=== PATIENT | female | born 1960 | race Caucasian/White ===

== ENCOUNTER → 2019-02-26 09:51 | Outpatient (CLI) | payer MEDICARE, SELFPAY ==
--- NOTE | 2019-02-26 10:30 | PET_ITS ---
EXAMINATION: FDG PET/CT INDICATIONS: A 58-year-old female with reported history of pulmonary nodularity. COMPARISON EXAMINATION: CT of the chest report impression dated 02/07/19 INDEX LESION SIZE SUV INTERPRETATION Right mid anterior lung field, right upper lobe 13.7-mm (frame 186) 1.2 Quantitative criteria for viable neoplasm are not fulfilled, sequential radiologic investigation recommended TECHNIQUE: Following the intravenous administration of 16.15 mCi of F-18 deoxyglucose via the left antecubital fossa, multiplanar image acquisitions of the neck, chest, abdomen and pelvis to level of mid thigh, obtained at one hour post radiopharmaceutical administration contemporaneously interpreted with the current CT of the neck, chest, abdomen and pelvis to level of mid thigh, dated 02/26/[address] of the chest report impression dated 02/07/19 reveal: SERUM GLUCOSE LEVEL: 95 mg/dl. HEIGHT: 64 inches. WEIGHT: 120 lbs. FINDINGS: 1. Enhanced radiopharmaceutical concentration is subtly defined in the right upper-mid anterior lung field-right upper lobe, generating a calculated maximal standard uptake value of 1.2. The maximal axial diameter of the non-calcified pleural-based density on review of CT of the chest dated 02/26/19 is 13.7-mm (AP). 2. Normal physiologic distribution of the radiopharmaceutical is apparent in the hepatic (2.5) and splenic parenchyma, both renal units, bladder and visualized intestinal tract. The visualized portion of the cerebral cortex demonstrate symmetric and preserved glucose metabolism. Diffuse radiopharmaceutical concentration is noted in all four quadrants of the abdomen and pelvis, most accentuated in the lower midline pelvis contiguous to the distal sigmoid colon, segmental in presentation, defined in all three axis reconstructions. Facilitated radiopharmaceutical concentration is noted in the left ventricular myocardial base commensurate with physiologic distribution of the radiopharmaceutical. Enhanced FDG uptake is noted in the ascending and descending thoracic aorta consistent with activated leukocytes associated with atherosclerotic plaque formation. (Rhett et al, Clinical Nuclear Medicine 29:93, 2004). Pertinent CT findings are as follows: CHEST: There is atherosclerotic calcification defined in the thoracic aorta without evidence of dilatation-aneurysm formation. Subtle coronary arterial calcification is observed. Bilateral axillary soft tissue densities with fatty hilus formation are ametabolic. There are no additional parenchymal densities-nodules noted in the right-left hemithorax demonstrating discernible increased glucose metabolism. A subcentimeter non-calcified density defined in the right mid lateral lung field-right middle lobe is non-glucose avid. ABDOMEN AND PELVIS: There is atherosclerotic calcification defined in the abdominal aorta without evidence of dilatation-aneurysm formation. Pelvic arterial calcification is observed. Surgical clips are identified in the bilateral lower hemipelvis anteriorly. Right-left inguinal soft tissue densities are ametabolic. The uterus is not clearly defined. SKELETAL: Degenerative changes are noted in the cervical, thoracic and lumbar spine. PET/PET/CT Tumor Base -Thigh Init IMPRESSION: 1. NEGATIVE EXAMINATION. There is no definitive quantitative scintigraphic evidence of viable neoplasm. 2. Subtle increased FDG concentration noted in the right mid anterior lung field, right upper lobe, does not fulfill quantitative criteria for viable neoplasm. (Lynsey et al, Annals of Internal Medicine, 138:724, 2003). 3. Metabolic and/or anatomic stability may be ensured in the right hemithorax pulmonary parenchymal abnormality with repeat FDG PET study and/or CT of the thorax in three-six months. (Xiu, Journal of Nuclear Medicine 45:88, P2004 Enmanuel, Seminars in Thoracic and Cardiovascular Surgery 14:292, 2002). Electronic Signature Valdemar Potter D.O. Electronically Signed: Valdemar Potter DO at 22:55 EDT Tel , Service support ,
== END ==
PROVIDERS: Family Provider Family Medicine; PCP Family Medicine
DX: R91.1 Solitary pulmonary nodule (principal)
CPT/HCPCS: 78815; A9552

== ENCOUNTER → 2019-12-05 10:45 | Outpatient (CLI) | payer MEDICARE, SELFPAY | PROVIDERS: PCP Family Medicine | DX: Z20.828 Contact with and (suspected) exposure to other viral communicable diseases (principal) | CPT/HCPCS: 87635; G2023; U0003 ==

== ENCOUNTER → 2020-03-11 14:56 | Outpatient (CLI) | payer MEDICARE, MEDICAID, SELFPAY ==
--- NOTE | 2020-03-11 16:00 | PET_ITS ---
EXAMINATION: FDG PET CT INDICATIONS: A 59-year-old female with history of pulmonary nodularity. COMPARISON EXAMINATION: CT of the chest report dated 02/20/20. TECHNIQUE: Following the intravenous administration of 13.1 mCi of F-18 deoxyglucose via the left hand, multiplanar image acquisitions of the neck, chest, abdomen and pelvis to level of mid thigh, obtained at one hour post radiopharmaceutical administration contemporaneously interpreted with the current CT of the neck, chest, abdomen and pelvis to level of mid thigh, dated 03/11/[address] of the chest report dated 02/20/20 reveal: SERUM GLUCOSE LEVEL: 72 mg/dl. HEIGHT: 63 inches. WEIGHT: 120 lbs. FINDINGS: 1. There is no quantitative scintigraphic evidence of abnormal increased glucose metabolism to include a noncalcified 7.9 mm parenchymal density defined in the right mid posterolateral lung-right upper lobe and 14.7 mm density in the left posterolateral lung-left lower lobe. 2. Normal physiologic distribution of the radiopharmaceutical is apparent in the hepatic and splenic parenchyma, both renal units, bladder and visualized intestinal tract. There is uniform distribution of the radiopharmaceutical concentration limited to the right visualized cerebral cortical, subcortical structures secondary to patient positioning. Facilitated uptake is noted in the ascending and descending thoracic aorta commensurate with activated leukocytes associated with atherosclerotic plaque formation. (Chetna et al, Clinical Nuclear Medicine 29:93, 2004). Diffuse gastrointestinal tract distribution of radiopharmaceutical most consistent with physiologic tracer uptake. Pertinent CT findings are as follows. CHEST: Atherosclerotic calcification is defined in the thoracic aorta without evidence of dilatation, aneurysm formation. Bilateral axillary soft tissue densities with fatty hilus are non-glucose avid. There are no additional parenchymal densities-nodules defined in the right and left hemithorax with discernible, quantitatively significant increased FDG uptake. Emphysematous changes are noted in the bilateral upper lung zones. ABDOMEN AND PELVIS: Atherosclerotic calcification is defined in the abdominal aorta without evidence of dilatation, aneurysm formation. Pelvic arterial calcification is observed. The uterus appears surgically absent. Apparent post surgical changes are manifest in the bilateral lower hemipelvic mesentery. Right and left inguinal soft tissue densities with fatty hilus are ametabolic. SKELETAL: Degenerative changes defined in the cervical, thoracic and lumbar spine demonstrate no evidence of glucose hypermetabolism. Diffuse demineralization is defined. PET/PET/CT Tumor Base -Thigh Init IMPRESSION: 1. NEGATIVE EXAMINATION. There is no quantitative scintigraphic evidence of abnormal increased glucose metabolism within the context of the bilateral hemithorax pulmonary parenchyma to correlate with structural changes noted on review of CT of the thorax dated 03/11/20. 2. Anatomic stability may be ensured in the nonglucose avid bilateral hemithorax pulmonary parenchymal densities with repeat CT of the thorax in three-six months. (Enmanuel, Seminars in Thoracic and Cardiovascular Surgery 14:292, 2002). Electronic Signature Valdemar Potter D.O. Accurate Quantification of SUVs for this report are calculated using the exclusive [email or web address]. Exclusive [place]. Patent [employer]? Technology ([place].S. Patent No. [id number] [id number]). Electronically Signed: Vlademar Potter DO at 23:23 EDT Tel , Service support ,
== END ==
PROVIDERS: PCP Family Medicine
DX: R91.1 Solitary pulmonary nodule (principal)
CPT/HCPCS: 78815; A9552

== ENCOUNTER 2021-02-13 17:24 | Emergency (ER) | payer MEDICARE, MEDICAID, SELFPAY ==
[2021-02-13 17:26] VITALS: BP 123/82; PULSE 114; RESP 16; TEMP 37.6; O2SAT 95; BMI 21.7
[2021-02-13 18:00] VITALS: O2SAT 95
--- NOTE | 2021-02-13 18:17 | ED.VIS.DYS ---
HPI History of Present Illness Chief Complaint: Shortness of Breath Informant: patient Onset/Context/Timing Onset: Days (4) Context: gradual Timing: Continuous Quality: Positive for Dyspnea on exertion Worsened by: Exertion Relieved by: Rest Associated Symptoms cough, rhinorrhea, fever and yellow sputum; Negative for ear pain or sore throat Chest Pain: Positive for Continuous, Aching and Burning Narrative Narrative: Patient presents with shortness of breath that has been getting worse over the last 4 days. Patient states it is gradually getting worse. Patient states it is worse with exertion and better with rest. Patient states she was diagnosed with COVID-19 today. Patient states she was told to come to the emergency department because she was positive for COVID-19. Patient admits to fevers at home of 103. Patient admits to some aching and burning in her chest. Patient also admits to a cough with yellow sputum and rhinorrhea. [facility] Medical History (Updated 02/13/21 @ 20:[address] Elgin Burk, DO) Anxiety Emphysema lung GERD (gastroesophageal reflux disease) HTN (hypertension) Home Medications clonazepam [Klonopin] 1 mg PO QHS 08/13/13 [History Last Taken Unknown] omeprazole 20 mg PO BID 08/13/13 [History Last Taken Unknown] polyethylene glycol 3350 17 g PO DAILY 08/13/13 [History Last Taken Unknown] albuterol sulfate 2.5 mg INHALATION Q4H PRN PRN 04/04/17 [History Last Taken Unknown] prednisone 60 mg PO DAILY #3 days 04/04/17 [Rx Last Taken Unknown] amlodipine 5 mg PO DAILY 02/13/21 [History Last Taken Unknown] clonazepam 0.5 mg PO DAILY 02/13/21 [History Last Taken Unknown] docusate sodium [DOK] 100 mg PO BID 02/13/21 [History Last Taken Unknown] [id number] [Trelegy Ellipta] 1 ea INHALATION DAILY 02/13/21 [History Last Taken Unknown] Allergy/AdvReac Type Severity Reaction Status Date / Time amoxicillin [Amoxicillin] Allergy Shortness Verified 02/13/21 17:25 of breath Antihistamines - Alkylamine Allergy Other Verified 02/13/21 17:25 ciprofloxacin [From Cipro] Allergy Shortness Verified 02/13/21 17:25 of breath ciprofloxacin HCl Allergy Shortness Verified 02/13/21 17:25 [From Cipro] of breath codeine Allergy Shortness Verified 02/13/21 17:25 of breath hydrocodone bitartrate Allergy Shortness Verified 02/13/21 17:25 [From Vicodin] of breath Penicillins Allergy Hives Verified 02/13/21 17:25 sulfamethoxazole Allergy Shortness Verified 02/13/21 17:25 [From Bactrim] of breath trimethoprim [From Bactrim] Allergy Shortness Verified 02/13/21 17:25 of breath acetaminophen [From Percocet] AdvReac Vomiting Verified 02/13/21 17:25 beclomethasone dipropionate AdvReac Other Verified 02/13/21 17:25 [From Qvar] oxycodone HCl [From Percocet] AdvReac Vomiting Verified 02/13/21 17:25 tramadol AdvReac Shortness Verified 02/13/21 17:25 of breath Surgical History (Updated 02/13/21 @ 18:[address] Elgin Burk DO) History of hysterectomy Social History Smoking Status: Current every day smoker tobacco type: smokeless tobacco ROS ROS ED Constitutional Constitutional ED: Reports fever(s); Denies chills Eyes Eyes: Denies blurry vision or change in vision ENT ENT ED: Reports rhinorrhea and sore throat Cardiovascular Cardiovascular: Reports chest pain; Denies palpitations Respiratory/Chest Respiratory/Chest: Reports cough and dyspnea Gastrointestinal Gastrointestinal: Reports nausea; Denies vomiting Genitourinary Genitourinary ED: Denies dysuria or hematuria Musculoskeletal Musculoskeletal: Denies back pain or neck pain Integumentary Denies abscess or rash Neurologic Neurologic: Denies headache(s) or weakness Allergic/Immunologic Allergic/Immunologic ED: Denies mouth swelling or urticaria EXAM Physical Exam Const Vital Signs: 02/13/21 17:26 02/13/21 18:00 02/13/21 19:37 Temperature 99.7 F H Temperature Source Temporal Pulse Rate 114 H 101 H Respiratory Rate 16 18 Respiratory Effort Short of Breath Respiratory Depth Normal Respiratory Pattern Normal Blood Pressure 123/82 H 134/79 H Blood Pressure Mean 95 97 Pulse Ox 95 95 Oxygen Delivery Method Room Air Room Air Room Air Positive well nourished and well developed General Appearance ED: well developed HEENT Reports moist mucous membranes Neck supple and no JVD Resp normal respiratory effort and clear to auscultation bilaterally Cardio regular rate, regular rhythm and no murmurs GI normal to inspection, nondistended, normoactive bowel sounds and non-tender Palpation: soft Extremity normal to inspection General Extremety ED: Negative for edema or tenderness General Extremity: Negative for edema Neuro oriented x3, CN's II-XII intact bilaterally and no sensory deficits noted Sensorium / Orientation: alert Motor Exam: strength 5/5 throughout Psych mental status grossly normal Mood & Affect: anxious Skin no rashes or lesions noted MDM MDM MDM Narrative Medical decision making narrative: CBC and comprehensive metabolic profile were within normal limits. Lactate was normal. Portable 1 view chest x-ray was obtained. On my interpretation, lung luo show an ill-defined density in the right lower lung, possibly atelectasis versus infiltrate versus artifact. There is normal cardiac silhouette. Bony thorax is normal. Radiologist also interpreted the x-ray and agrees. Patient was advised of her findings. Patient does meet criteria for outpatient monoclonal antibody infusion. Patient was given a referral for this. Patient was instructed to follow-up with her primary care physician in 5 to 7 days. Patient understood and was agreeable with the plan. All questions were answered. Lab Data Attestation: I reviewed the patient's lab results. Labs: Laboratory Results - last 24 hr 02/13/21 02/13/21 02/13/21 18:33 18:33 18:33 WBC 6.4 RBC 4.75 Hgb 14.2 Hct 42.2 MCV 88.8 MCH 29.9 MCHC 33.6 RDW Std Deviation 44.8 H RDW Coeff of Wilber 13.6 Plt Count 163 MPV 8.9 Immature Gran % (Auto) 0.300 Neut % (Auto) 78.1 H Lymph % (Auto) 11.9 L Andrews % (Auto) 9.2 Eos % (Auto) 0.2 Baso % (Auto) 0.3 Absolute Neuts (auto) 5.0 Absolute Lymphs (auto) 0.76 L Nucleated RBC % 0 Sodium 134 L Potassium 4.1 Chloride 104 Carbon Dioxide 23.0 Anion Gap 7 BUN 18 Creatinine 0.75 Estim Creat Clear Calc 67.63 Est GFR (MDRD) Af Amer 101 Est GFR (MDRD) Non-Af 84 BUN/Creatinine Ratio 23.9 H Glucose 101 Lactic Acid 0.7 Calcium 8.6 Total Bilirubin 0.60 AST 30 ALT 25 Alkaline Phosphatase 77 Total Protein 7.3 Albumin 3.5 Globulin 3.8 Albumin/Globulin Ratio 0.9 Radiography Chest X-Ray - ED: 1 View, Read by ED Physician, Read by Radiologist and - (Atelectasis versus infiltrate versus artifact in the right lower lobe) Diagnostic Testing: Radiology Impression Chest X-Ray 02/13/21 18:35 IMPRESSION: Ill-defined opacity in the right lower lung, possibly atelectasis versus early pneumonia versus artifact. Electronically Signed: Familia Avina MD at 19:04 EDT Tel , Service support , Discharge Plan Triage Chief Complaint: Shortness of Breath ED Provider: Elgin Burk Dx/Rx/DC Orders Clinical Impression: COVID-19 Instructions: Coronavirus Disease 2019 (COVID-19): Overview Prescriptions: No Action polyethylene glycol 3350 17 GM powder in packet 17 g PO DAILY RF: 0 clonazepam [Klonopin] 1 MG tablet 1 mg PO QHS RF: 0 omeprazole 20 MG capsule 20 mg PO BID RF: 0 albuterol sulfate 2.5 MG/3 ML solution for nebulization 2.5 mg inhalation Q4H PRN PRN (Reason: Wheezing) RF: 0 prednisone 20 MG tablet 60 mg PO DAILY Qty: 3 RF: 0 clonazepam 0.5 mg tablet 0.5 mg PO DAILY RF: 0 amlodipine 5 mg Tablet 5 mg PO DAILY RF: 0 docusate sodium [DOK] 100 mg capsule 100 mg PO BID RF: 0 Trelegy Ellipta 100-62.5-25 mcg blister with device 1 ea INHALATION DAILY RF: 0 Other Ambulatory Orders: COVID Outpatient Monoclonal Antibody Referral (Routine) Location: None Selected Ordered By: Dr. Elgin Burk Primary Care Provider: Romaine Nash Referrals: Romaine Nash MD [Primary Care Provider] - 3-5 Days Disposition Disposition: Home, Self Care
--- NOTE | 2021-02-13 18:35 | RAD_ITS ---
STUDY: X-RAY CHEST REASON FOR EXAM: Female, 60 years old. cough TECHNIQUE: Frontal portable view of the chest COMPARISON: 04 April 2017 FINDINGS: There is ill-defined opacity in the right lower lung. Remainder the lungs are clear. There is no pneumothorax, pulmonary edema, cardiomegaly or pleural effusions. Osseous structures are intact. RAD/Chest 1 View (Portable) IMPRESSION: Ill-defined opacity in the right lower lung, possibly atelectasis versus early pneumonia versus artifact. Electronically Signed: Familia Avina MD at 19:04 EDT Tel , Service support ,
[2021-02-13 18:40] LABS: Absolute Lymphocyte Count 0.76 X10^3/uL (0.83-4.51); Basophil# 0.02 X10^3/uL; Basophil% 0.3 % (0-1); Eosinophil# 0.01 X10^3/uL; Eosinophils% 0.2 % (0-5); Hematocrit 42.2 % (37-47); Hemoglobin 14.2 g/dL (12.0-15.0); Lymphocyte # 0.76 X10^3/ul (0.83-4.51); Lymphocyte % 11.9 % (19-41); Mean Corp Hgb Conc 33.6 g/dL (32-36); Mean Corpuscular Hgb 29.9 pg (27.0-32.0); Mean Corpuscular Volume 88.8 fL (81-99); Mean Platelet Vol. 8.9 fl (6.2-12.0); Monocyte# 0.59 X10^3/uL; Monocyte% 9.2 % (0-10); NRBC Flagged by Analyzer 0 % (0-5); Neutrophil % 78.1 % (47-70); Platelet Count 163 K/mm3 (150-450); RBC Distribution Width CV 13.6 % (11.6-14.6); RBC Distribution Width SD 44.8 fl (35.1-43.9); Red Blood Count 4.75 M/mm3 (4.2-5.4); White Blood Count 6.4 K/mm3 (4.4-11.0)
[2021-02-13 19:02] LABS: ALB/GLOB Ratio 0.9 RATIO (0.9-2.4); AST(SGOT) 30 U/L (15-37); Alanine Aminotransfer ALT/SGPT 25 U/L (13-56); Albumin, Serum 3.5 g/dL (3.2-5.0); Alkaline Phosphatase 77 U/L (45-117); Anion Gap 7 (5-15); BUN 18 mg/dL (7-18); BUN/Creat Ratio 23.9 RATIO (10-20); Calcium,Total 8.6 mg/dL (8.5-10.1); Chloride 104 mmol/L (98-107); Creatinine, Serum 0.75 mg/dL (0.55-1.02); EST Glomerular Filtration Rate 84 mL/min (>60); Est Glom Filt Rate - Afr Amer 101 mL/min (>60); Estimated Creatinine Clearance 67.63 ml/min; Globulin 3.8 g/dL (2.2-4.2); Glucose 101 mg/dL (74-106); Potassium 4.1 mmol/L (3.5-5.1); Protein, Total 7.3 g/dL (6.4-8.2); Sodium Level 134 mmol/L (136-145)
[2021-02-13 19:29] LABS: Lactic Acid 0.7 mmol/L (0.4-1.9)
[2021-02-13 19:37] VITALS: BP 134/79; PULSE 101; RESP 18; O2SAT 95
== END 2021-02-13 20:27 | disposition home or self-care (01) ==
PROVIDERS: Emergency Provider Emergency Medicine; PCP Family Medicine
DX: U07.1 COVID-19 (principal); F41.9 Anxiety disorder, unspecified; K21.9 Gastro-esophageal reflux disease without esophagitis; I10 Essential (primary) hypertension; F17.200 Nicotine dependence, unspecified, uncomplicated; Z79.51 Long term (current) use of inhaled steroids; Z79.899 Other long term (current) drug therapy
CPT/HCPCS: 71045; 80053; 83605; 85025; 99284; A4216

== ENCOUNTER 2021-02-23 11:02 | Emergency (ER) | payer MEDICARE, MEDICAID, SELFPAY ==
[2021-02-23 11:03] VITALS: BP 119/81; PULSE 91; RESP 19; TEMP 36.6; O2SAT 93; BMI 22.1
--- NOTE | 2021-02-23 11:31 | RAD_ITS ---
STUDY: X-RAY CHEST REASON FOR EXAM: Female, 60 years old. COUGH WITH COLORED SPUTUM -- COVID POSITIVE TECHNIQUE: Single AP portable view of the chest. COMPARISON: 02/13/2021 FINDINGS: The lungs are clear and expanded. There is no demonstrated pleural abnormality. Normal size heart. Normal mediastinum and nafisa. Normal visualized pulmonary arteries. Normal visualized aortic arch and descending thoracic aorta. Normal visualized thoracic spine. Normal visualized ribs, clavicles, and shoulders. There is no demonstrated abnormality of the visualized soft tissue structures of the upper abdomen. RAD/Chest 1 View (Portable) IMPRESSION: Normal x-ray examination of the chest. Electronically Signed: Valdemar Kowalski MD at 12:35 EDT Tel , Service support ,
[2021-02-23 12:37] VITALS: BP 136/77; PULSE 77; RESP 18; O2SAT 95
[2021-02-23 12:39] VITALS: BP 136/77; PULSE 77; RESP 16; RESP 18; TEMP 36.6; O2SAT 95; O2SAT 96
--- NOTE | 2021-02-23 12:45 | EKG12_ITS ---
Test Reason : Blood Pressure : / mmHG Vent. Rate : 073 BPM Atrial Rate : 073 BPM P-R Int : 172 ms QRS Dur : 088 ms QT Int : 414 ms P-R-T Axes : 080 083 063 degrees QTc Int : 456 ms Normal sinus rhythm Possible Biatrial enlargement Abnormal ECG Confirmed by ZORA COBIAN, LAW ([id number]), editor news NICKOLAS KUMAR ([id number]) on 02/25/2021 10:16:37 AM Referred By: SHASHI/NESTOR Confirmed By:LAW BLAKELY MD
--- NOTE | 2021-02-23 12:47 | EX.ED.DYSGE1 ---
HPI History of Present Illness Chief Complaint: General Illness Informant: patient Onset/Context/Timing Onset: Weeks Context: Gradual Onset Current Severity: Moderate Maximum Severity: Moderate Narrative Narrative: Patient present secondary to COVID-19. She has had symptoms for 2 weeks. She reports increased shortness of breath and feeling dizzy. She states her right arm feels heavy since 6 PM last evening. She denies headache. She has recently been bringing up yellow sputum with her cough. She denies fever or chills. Patient states she was recently seen at [facility] and just finished a course of Zithromax and Medrol. [facility] Medical History Anxiety Emphysema lung GERD (gastroesophageal reflux disease) HTN (hypertension) Home Medications clonazepam [Klonopin] 1 mg PO QHS 08/13/13 [History Last Taken Unknown] omeprazole 20 mg PO BID 08/13/13 [History Last Taken Unknown] polyethylene glycol 3350 17 g PO DAILY 08/13/13 [History Last Taken Unknown] albuterol sulfate 2.5 mg INHALATION Q4H PRN PRN 04/04/17 [History Last Taken Unknown] prednisone 60 mg PO DAILY #3 days 04/04/17 [Rx Last Taken Unknown] amlodipine 5 mg PO DAILY 02/13/21 [History Last Taken Unknown] clonazepam 0.5 mg PO DAILY 02/13/21 [History Last Taken Unknown] docusate sodium [DOK] 100 mg PO BID 02/13/21 [History Last Taken Unknown] bcridzuxgxa-[id number]-lluukmwi [Trelegy Ellipta] 1 ea INHALATION DAILY 02/13/21 [History Last Taken Unknown] azithromycin [Zithromax Z-Parish] See Rx Instructions PO .COMPLEX #6 tab 02/23/21 [Rx Last Taken Unknown] ipratropium-albuterol 3 ml INHALATION Q8H PRN #90 ml 02/23/21 [Rx Last Taken Unknown] mupirocin 1 applic TOPICAL BID #15 g 02/23/21 [Rx Last Taken Unknown] prednisone See Taper PO DAILY #63 tab 02/23/21 [Rx Last Taken Unknown] Allergy/AdvReac Type Severity Reaction Status Date / Time amoxicillin [Amoxicillin] Allergy Shortness Verified 02/13/21 17:25 of breath Antihistamines - Alkylamine Allergy Other Verified 02/13/21 17:25 ciprofloxacin [From Cipro] Allergy Shortness Verified 02/13/21 17:25 of breath ciprofloxacin HCl Allergy Shortness Verified 02/13/21 17:25 [From Cipro] of breath codeine Allergy Shortness Verified 02/13/21 17:25 of breath hydrocodone bitartrate Allergy Shortness Verified 02/13/21 17:25 [From Vicodin] of breath Penicillins Allergy Hives Verified 02/13/21 17:25 sulfamethoxazole Allergy Shortness Verified 02/13/21 17:25 [From Bactrim] of breath trimethoprim [From Bactrim] Allergy Shortness Verified 02/13/21 17:25 of breath acetaminophen [From Percocet] AdvReac Vomiting Verified 02/13/21 17:25 beclomethasone dipropionate AdvReac Other Verified 02/13/21 17:25 [From Qvar] oxycodone HCl [From Percocet] AdvReac Vomiting Verified 02/13/21 17:25 tramadol AdvReac Shortness Verified 02/13/21 17:25 of breath Surgical History History of hysterectomy Social History Smoking Status: Current every day smoker tobacco type: smokeless tobacco ROS ROS ED Constitutional Constitutional ED: Denies chills or fever(s) Eyes Eyes: Denies change in vision ENT ENT ED: Denies sore throat Cardiovascular Cardiovascular: Reports chest pain Respiratory/Chest Respiratory/Chest: Reports cough, dyspnea and sputum Gastrointestinal Gastrointestinal: Denies abdominal pain, diarrhea, nausea or vomiting Genitourinary Genitourinary ED: Denies dysuria Musculoskeletal Musculoskeletal: Reports myalgias; Denies back pain Integumentary Denies rash Neurologic Neurologic: Denies headache(s), paresthesias or weakness Psychiatric Psychiatric: Denies anxiety or depression Allergic/Immunologic Allergic/Immunologic ED: Denies urticaria EXAM Physical Exam Const Vital Signs: 02/23/21 11:03 02/23/21 12:37 02/23/21 12:38 Temperature 97.8 F Temperature Source Temporal Pulse Rate 91 77 Respiratory Rate 19 H 18 Respiratory Effort Non-Labored Short of Breath Respiratory Pattern Normal Blood Pressure 119/81 H 136/77 H Blood Pressure Mean 93 96 Pulse Ox 93 95 Oxygen Delivery Method Room Air Room Air 02/23/21 12:39 02/23/21 13:02 Temperature 98 F Temperature Source Temporal Pulse Rate 77 76 Respiratory Rate 16 12 Respiratory Effort Respiratory Pattern Blood Pressure 136/77 H Blood Pressure Mean 96 Pulse Ox 96 97 Oxygen Delivery Method Room Air Room Air Positive well nourished and well developed General Appearance ED: well developed HEENT Reports moist mucous membranes HEENT Narrative: Small pustules noted on the face along the upper lip and lower lip. This is most likely secondary to mask wearing. Eyes PERRL and EOMs intact bilaterally Neck supple Resp normal respiratory effort Resp Narrative: Mild rales bilaterally Cardio regular rate and regular rhythm GI normal to inspection, nondistended, normoactive bowel sounds and non-tender Palpation: soft Extremity normal to inspection Neuro oriented x3 and no sensory deficits noted Sensorium / Orientation: alert Motor Exam: strength 5/5 throughout Psych mental status grossly normal MDM MDM MDM Narrative Medical decision making narrative: Blood work, chest x-ray, EKG obtained. Patient was given a DuoNeb treatment. Lab Data Attestation: I reviewed the patient's lab results. Labs: Laboratory Results - last 24 hr 02/23/21 02/23/21 12:50 12:50 WBC 7.3 RBC 4.93 Hgb 14.4 Hct 43.7 MCV 88.6 MCH 29.2 MCHC 33.0 RDW Std Deviation 43.3 RDW Coeff of Wilber 13.2 Plt Count 357 MPV 8.7 Immature Gran % (Auto) 1.800 H Neut % (Auto) 75.5 H Lymph % (Auto) 15.0 L [place] % (Auto) 7.0 Eos % (Auto) 0.4 Baso % (Auto) 0.3 Absolute Neuts (auto) 5.5 Absolute Lymphs (auto) 1.09 Nucleated RBC % 0 Sodium 137 Potassium 3.7 Chloride 104 Carbon Dioxide 26.0 Anion Gap 7 BUN 15 Creatinine 0.55 Estim Creat Clear Calc 92.23 Est GFR (MDRD) Af Amer 146 Est GFR (MDRD) Non-Af 121 BUN/Creatinine Ratio 27.3 H Glucose 84 Calcium 8.9 Troponin I High Sens 6 Radiography Chest X-Ray - ED: 1 View, Read by ED Physician, Chronic Changes and No Infiltrates Diagnostic Testing: Radiology Impression Chest X-Ray 02/23/21 11:31 IMPRESSION: Normal x-ray examination of the chest. Electronically Signed: Valdemar Kowalski MD at 12:35 EDT Tel , Service support , EKG Initial EKG: Attestation: I personally reviewed and interpreted this EKG as follows: Interpretation: Sinus Rhythm (Sinus at 73 with no acute ischemia.) Treatment and Re-Evaluation Comments:: On repeat evaluation patient does feel improved. Respiratory therapy staff states patient was able to cough up a lot of sputum with the breathing treatment. She will be given a refill of her DuoNeb. Patient has allergy to multiple antibiotics so therefore will be given another prescription for Zithromax. Although doxycycline is not listed on her allergies she states she cannot take that one either. She will also be given Bactroban ointment to place topically on her skin lesions and prednisone. Discharge Plan Triage Chief Complaint: General Illness ED Provider: Belinda Goldman Dx/Rx/DC Orders Clinical Impression: COVID-19 Instructions: Coronavirus Disease 2019 (COVID-19): Overview, Coronavirus Disease 2019 (COVID-19): Caring for Yourself or Others Prescriptions: New azithromycin [Zithromax Z-Parish] 250 mg tablet See Rx Instructions PO .COMPLEX Qty: 6 RF: 0 prednisone 10 mg tablet See Taper mg PO DAILY Qty: 63 RF: 0 mupirocin 2 % ointment 1 applic topical BID Qty: 15 RF: 0 ipratropium-albuterol 0.5 mg-3 mg(2.5 mg base)/3 mL solution for nebulization 3 ml inhalation Q8H PRN (Reason: shortness of breath or wheezing) Qty: 90 RF: 0 No Action polyethylene glycol 3350 17 GM powder in packet 17 g PO DAILY RF: 0 clonazepam [Klonopin] 1 MG tablet 1 mg PO QHS RF: 0 omeprazole 20 MG capsule 20 mg PO BID RF: 0 albuterol sulfate 2.5 MG/3 ML solution for nebulization 2.5 mg inhalation Q4H PRN PRN (Reason: Wheezing) RF: 0 prednisone 20 MG tablet 60 mg PO DAILY Qty: 3 RF: 0 clonazepam 0.5 mg tablet 0.5 mg PO DAILY RF: 0 amlodipine 5 mg Tablet 5 mg PO DAILY RF: 0 docusate sodium [DOK] 100 mg capsule 100 mg PO BID RF: 0 Trelegy Ellipta 100-62.5-25 mcg blister with device 1 ea INHALATION DAILY RF: 0 Primary Care Provider: Romaine Nash Referrals: Romaine Nash MD [Primary Care Provider] - 1-2 Weeks Disposition Disposition: Home, Self Care
[2021-02-23] MEDS: Ipratropium/Albuterol Sulfate 3 ML AMPUL.NEB INHALATION (13:01)
[2021-02-23 13:02] VITALS: PULSE 76; RESP 12; O2SAT 97
[2021-02-23 13:04] LABS: Absolute Lymphocyte Count 1.09 X10^3/uL (0.83-4.51); Absolute Neutrophil Count 5.5 X10^3/uL (2.0-7.7); Basophil# 0.02 X10^3/uL; Basophil% 0.3 % (0-1); Eosinophil# 0.03 X10^3/uL; Eosinophils% 0.4 % (0-5); Hematocrit 43.7 % (37-47); Hemoglobin 14.4 g/dL (12.0-15.0); Lymphocyte # 1.09 X10^3/ul (0.83-4.51); Mean Corpuscular Hgb 29.2 pg (27.0-32.0); Mean Corpuscular Volume 88.6 fL (81-99); Mean Platelet Vol. 8.7 fl (6.2-12.0); Monocyte# 0.51 X10^3/uL; NRBC Flagged by Analyzer 0 % (0-5); Neutrophil # 5.48 X10^3/uL (2.7-7.7); Neutrophil % 75.5 % (47-70); Platelet Count 357 K/mm3 (150-450); RBC Distribution Width CV 13.2 % (11.6-14.6); RBC Distribution Width SD 43.3 fl (35.1-43.9); Red Blood Count 4.93 M/mm3 (4.2-5.4); White Blood Count 7.3 K/mm3 (4.4-11.0)
[2021-02-23 13:29] LABS: Anion Gap 7 (5-15); BUN 15 mg/dL (7-18); BUN/Creat Ratio 27.3 RATIO (10-20); Calcium,Total 8.9 mg/dL (8.5-10.1); Chloride 104 mmol/L (98-107); Creatinine, Serum 0.55 mg/dL (0.55-1.02); EST Glomerular Filtration Rate 121 mL/min (>60); Est Glom Filt Rate - Afr Amer 146 mL/min (>60); Estimated Creatinine Clearance 92.23 ml/min; Glucose 84 mg/dL (74-106); Potassium 3.7 mmol/L (3.5-5.1); Sodium Level 137 mmol/L (136-145); Troponin-I HS 6 pg/mL (3.0-54.0)
[2021-02-23 14:29] VITALS: BP 133/83; PULSE 81; RESP 17; TEMP 36.2; O2SAT 98
== END 2021-02-23 14:29 | disposition home or self-care (01) ==
PROVIDERS: Emergency Provider Emergency Medicine; PCP Family Medicine
DX: U07.1 COVID-19 (principal); I10 Essential (primary) hypertension; J43.9 Emphysema, unspecified; K21.9 Gastro-esophageal reflux disease without esophagitis; F41.9 Anxiety disorder, unspecified; F17.200 Nicotine dependence, unspecified, uncomplicated; Z88.1 Allergy status to other antibiotic agents; Z79.52 Long term (current) use of systemic steroids; Z79.899 Other long term (current) drug therapy
CPT/HCPCS: 71045; 80048; 84484; 85025; 93005; 94640; 94760; 99284; A4216

== ENCOUNTER 2021-03-02 19:14 | Emergency (ER) | payer MEDICARE, MEDICAID, SELFPAY ==
[2021-03-02 19:15] VITALS: BP 148/95; PULSE 107; RESP 18; TEMP 36.6; O2SAT 95; BMI 20.8
--- NOTE | 2021-03-02 19:37 | EKG12_ITS ---
Test Reason : CP Blood Pressure : / mmHG Vent. Rate : 116 BPM Atrial Rate : 116 BPM P-R Int : 152 ms QRS Dur : 092 ms QT Int : 330 ms P-R-T Axes : 079 104 062 degrees QTc Int : 458 ms Sinus tachycardia Biatrial enlargement Abnormal ECG Confirmed by TOMMY COBIAN, KENTRELL ([id number]), video effects editor BILL SUAREZ ([id number]) on 03/03/2021 1:50:22 PM Referred By: RADHA Confirmed By:KENTRELL SANDERS MD
--- NOTE | 2021-03-02 19:37 | RAD_ITS ---
INDICATION: chest pain EXAMINATION/TECHNIQUE: X-RAY - XR Chest 1 View COMPARISON: 02/23/2021. FINDINGS: The lungs are clear. The cardiomediastinal silhouette is unremarkable. No pleural effusion or pneumothorax. No acute osseous abnormalities. RAD/Chest 1 View (Portable) IMPRESSION: No acute radiographic abnormalities. Electronically Signed: Mike Luna MD at 20:56 EDT Tel , Service support ,
[2021-03-02 21:28] VITALS: PULSE 84; TEMP 35.7; O2SAT 95
--- NOTE | 2021-03-02 21:36 | EDS_ITS ---
HPI History of Present Illness Chief Complaint: Chest Pain Narrative Narrative: 60-year-old female presenting with chest pain which she describes as burning and dyspepsia. She is had this for most of the day. She states that she is recently been on a couple of weeks of prednisone as well as a couple of weeks of azithromycin for some bronchial disorder. She tested positive for COVID-19 on the second. She cannot tell me when her symptoms started. She states that she does not have any more fever, chills, body aches anymore. She has a history of PE in the past and she is not anticoagulated. Patient denies any cardiac history. [facility] Medical History Anxiety Emphysema lung GERD (gastroesophageal reflux disease) HTN (hypertension) Home Medications clonazepam [Klonopin] 1 mg PO QHS 08/13/13 [History Last Taken Unknown] omeprazole 20 mg PO BID 08/13/13 [History Last Taken Unknown] albuterol sulfate 2.5 mg INHALATION Q4H PRN PRN 04/04/17 [History Last Taken Unknown] amlodipine 5 mg PO DAILY 02/13/21 [History Last Taken Unknown] clonazepam 0.5 mg PO DAILY 02/13/21 [History Last Taken Unknown] docusate sodium [DOK] 100 mg PO BID 02/13/21 [History Last Taken Unknown] ifzxkldabrp-jitjivefo-rqjzcqsb [Trelegy Ellipta] 1 ea INHALATION DAILY 02/13/21 [History Last Taken Unknown] ipratropium-albuterol 3 ml INHALATION Q8H PRN #90 ml 02/23/21 [Rx Last Taken Unknown] mupirocin 1 applic TOPICAL BID #15 g 02/23/21 [Rx Last Taken Unknown] Allergy/AdvReac Type Severity Reaction Status Date / Time amoxicillin [Amoxicillin] Allergy Shortness Verified 03/02/21 22:21 of breath Antihistamines - Alkylamine Allergy Other Verified 03/02/21 22:21 ciprofloxacin [From Cipro] Allergy Shortness Verified 03/02/21 22:21 of breath ciprofloxacin HCl Allergy Shortness Verified 03/02/21 22:21 [From Cipro] of breath codeine Allergy Shortness Verified 03/02/21 22:21 of breath hydrocodone bitartrate Allergy Shortness Verified 03/02/21 22:21 [From Vicodin] of breath Penicillins Allergy Hives Verified 03/02/21 22:21 sulfamethoxazole Allergy Shortness Verified 03/02/21 22:21 [From Bactrim] of breath trimethoprim [From Bactrim] Allergy Shortness Verified 03/02/21 22:21 of breath acetaminophen [From Percocet] AdvReac Vomiting Verified 03/02/21 22:21 beclomethasone dipropionate AdvReac Other Verified 03/02/21 22:21 [From Qvar] oxycodone HCl [From Percocet] AdvReac Vomiting Verified 03/02/21 22:21 tramadol AdvReac Shortness Verified 03/02/21 22:21 of breath Surgical History History of hysterectomy Social History Smoking Status: Current every day smoker tobacco type: smokeless tobacco ROS ROS ED Constitutional Constitutional ED: Denies chills or fever(s) ENT ENT ED: Denies rhinorrhea or sore throat Cardiovascular Cardiovascular: Reports chest pain Respiratory/Chest Respiratory/Chest: Reports cough and dyspnea Gastrointestinal Gastrointestinal: Denies abdominal pain, nausea or vomiting Genitourinary Genitourinary ED: Denies dysuria or hematuria Musculoskeletal Musculoskeletal: Denies arthralgias or myalgias Integumentary Denies Abrasions or rash Neurologic Neurologic: Denies headache(s) or paresthesias EXAM Physical Exam Const Vital Signs: 03/02/21 19:15 03/02/21 21:28 03/02/21 21:44 Temperature 97.8 F 96.2 F L Temperature Source Temporal Temporal Pulse Rate 107 H 84 Respiratory Rate 18 Respiratory Effort Blood Pressure 148/95 H Blood Pressure Mean 112 Pulse Ox 95 95 94 Oxygen Delivery Method Room Air Room Air Room Air 03/02/21 22:22 03/02/21 23:24 Temperature Temperature Source Pulse Rate 83 Respiratory Rate 15 Respiratory Effort Normal Blood Pressure 155/98 H Blood Pressure Mean 117 Pulse Ox 95 Oxygen Delivery Method Room Air Positive well nourished General Appearance ED: NAD HEENT Reports moist mucous membranes normocephalic and atraumatic Eyes PERRL and EOMs intact bilaterally General Eye ED: Negative for pale conjunctiva Chest Wall inspection of chest normal Resp normal respiratory effort Effort and Inspection: respiratory distress Cardio regular rate and regular rhythm Neuro oriented x3 Sensorium / Orientation: awake and alert Psych mental status grossly normal Skin no rashes or lesions noted Heart Score History: Slightly/Non-Suspicious ECG: Normal Age: >45 - <65 years Risk Factors: 1 or 2 Risk Factors Score: 2 MDM MDM MDM Narrative Medical decision making narrative: Patient presenting with burning chest pain. She describing acid reflux. She has been on 2 weeks of steroids as well as azithromycin per her recollection and this was treatment for COVID-19 pneumonitis. She also has a history of emphysema. Patient also reports history of pulmonary emboli. Patient's blood work today shows a slight leukocytosis of 11.3. Hemoglobin hematocrit are stable. Platelets are normal. Renal function electrolytes are also normal. Troponin is 5 and this has been going on for days. It also sounds as if it is GI related given her dyspepsia and she has been on prednisone for 2 weeks. I do not believe she is repeat troponin with a troponin of 5 currently. EKG on my interpretation shows a sinus tachycardia at 116 bpm without sign of ischemic changes. Chest x-ray on my interpretation shows no acute cardiopulmonary process the radiologist does agree. Given josefina carranza's history of PE and history of Covid I did obtain a CTA which does not identify a PE or dissection. Radiologist interpretation of this is central lobar pneumonia as well as well right lower lobe infiltrates concerning for pneumonia as well as right consolidation in the middle lobe which is probably chronic. Given the patient is just recovered from COVID-19 pneumonitis I believe this is likely the source. She is been on 2 weeks of antibiotics that I do not believe she is another course. Patient is already finished her course of steroids and antibiotics. I feel she is safe for discharge home and follow-up with her primary care physician. Impression: 1. Chest pain 2. History of COVID-19 pneumonitis Lab Data Labs: Laboratory Results - last 24 hr 03/02/21 03/02/21 21:27 21:27 WBC 11.3 H RBC 5.12 Hgb 15.3 H Hct 46.1 MCV 90.0 MCH 29.9 MCHC 33.2 RDW Std Deviation 46.3 H RDW Coeff of Wilber 14.0 Plt Count 330 MPV 8.7 Immature Gran % (Auto) 0.400 Neut % (Auto) 70.5 H Lymph % (Auto) 15.9 L [place] % (Auto) 12.9 H Eos % (Auto) 0.1 Baso % (Auto) 0.2 Absolute Neuts (auto) 8.0 H Absolute Lymphs (auto) 1.79 Nucleated RBC % 0 Sodium 137 Potassium 4.2 Chloride 104 Carbon Dioxide 27.0 Anion Gap 6 BUN 16 Creatinine 0.66 Estim Creat Clear Calc 80.23 Est GFR (MDRD) Af Amer 118 Est GFR (MDRD) Non-Af 98 BUN/Creatinine Ratio 24.2 H Glucose 120 H Calcium 9.4 Troponin I High Sens 5 Radiography Diagnostic Testing: Radiology Impression Chest X-Ray 03/02/21 19:37 IMPRESSION: No acute radiographic abnormalities. Electronically Signed: Mike Luna MD at 20:56 EDT Tel , Service support , Chest CTA 03/02/21 21:39 IMPRESSION: 1. No pulmonary embolism. 2. No thoracic aortic aneurysm or dissection. 3. Centrilobular emphysema. 4. Infiltrates in the lower lobes are worrisome for pneumonia. 5. Small consolidative infiltrate or atelectasis right middle lobe which may be chronic. ASSESSMENT: ABNORMAL report - There are abnormal findings in this report which may be related or unrelated to the reason for the exam. Electronically Signed: Jaciel Renner MD at 0:03 EDT Tel , Service support , Discharge Plan Triage Chief Complaint: Chest Pain ED Provider: Damian Guevara Dx/Rx/DC Orders Prescriptions: No Action clonazepam [Klonopin] 1 MG tablet 1 mg PO QHS RF: 0 omeprazole 20 MG capsule 20 mg PO BID RF: 0 albuterol sulfate 2.5 MG/3 ML solution for nebulization 2.5 mg inhalation Q4H PRN PRN (Reason: Wheezing) RF: 0 clonazepam 0.5 mg tablet 0.5 mg PO DAILY RF: 0 amlodipine 5 mg Tablet 5 mg PO DAILY RF: 0 docusate sodium [DOK] 100 mg capsule 100 mg PO BID RF: 0 Trelegy Ellipta 100-62.5-25 mcg blister with device 1 ea INHALATION DAILY RF: 0 mupirocin 2 % ointment 1 applic topical BID Qty: 15 RF: 0 ipratropium-albuterol 0.5 mg-3 mg(2.5 mg base)/3 mL solution for nebulization 3 ml inhalation Q8H PRN (Reason: shortness of breath or wheezing) Qty: 90 RF: 0 Primary Care Provider: Romaine Nash
--- NOTE | 2021-03-02 21:39 | CT_ITS ---
EXAM: CT Angiography Chest Without and With Intravenous Contrast CLINICAL INDICATION: 60 years old, Female; chest pain TECHNIQUE: Helically acquired angiography images were obtained of the chest without and with intravenous contrast. This CT exam was performed using one or more of the following dose reduction techniques: automated exposure control, adjustment of the mA and/or kV according to patient size, and/or use of iterative reconstruction technique. This report was created using [employer] report generation technology. MIP reconstructed images were created and reviewed. CONTRAST: IV 75mL [id number] COMPARISON: None. FINDINGS: Pulmonary arteries: Unremarkable. Normal in caliber. No pulmonary embolism. Aorta: Unremarkable. No thoracic aortic aneurysm or dissection. Great vessels of aortic arch: Unremarkable. Normal in caliber. No evidence of dissection. Lungs and pleural spaces: Centrilobular emphysema. Infiltrates in the lower lobes are worrisome for pneumonia. Small consolidative infiltrate or atelectasis right middle lobe which may be chronic. No mass. No pleural effusion or thickening. Heart: Unremarkable. Heart size is normal. No pericardial effusion. No signs of right heart strain, ratio of right ventricle to left ventricle measures less than 1. Mediastinum: Unremarkable. No mediastinal or hilar adenopathy. Esophagus is unremarkable. No hiatal hernia. Thyroid: Unremarkable. No thyroid lesions. Bones/joints: Unremarkable. No suspicious lytic or blastic abnormality. CT/CTA Chest W/WO Contrast IMPRESSION: 1. No pulmonary embolism. 2. No thoracic aortic aneurysm or dissection. 3. Centrilobular emphysema. 4. Infiltrates in the lower lobes are worrisome for pneumonia. 5. Small consolidative infiltrate or atelectasis right middle lobe which may be chronic. ASSESSMENT: ABNORMAL report - There are abnormal findings in this report which may be related or unrelated to the reason for the exam. Electronically Signed: Jaciel Renner MD at 0:03 EDT Tel , Service support ,
[2021-03-02 21:44] VITALS: O2SAT 94
[2021-03-02 21:45] VITALS: O2SAT 95
[2021-03-02 22:40] LABS: Absolute Lymphocyte Count 1.79 X10^3/uL (0.83-4.51); Basophil# 0.02 X10^3/uL; Basophil% 0.2 % (0-1); Eosinophil# 0.01 X10^3/uL; Eosinophils% 0.1 % (0-5); Hematocrit 46.1 % (37-47); Hemoglobin 15.3 g/dL (12.0-15.0); Lymphocyte # 1.79 X10^3/ul (0.83-4.51); Lymphocyte % 15.9 % (19-41); Mean Corp Hgb Conc 33.2 g/dL (32-36); Mean Corpuscular Hgb 29.9 pg (27.0-32.0); Mean Platelet Vol. 8.7 fl (6.2-12.0); Monocyte# 1.45 X10^3/uL; Monocyte% 12.9 % (0-10); NRBC Flagged by Analyzer 0 % (0-5); Neutrophil # 7.96 X10^3/uL (2.7-7.7); Neutrophil % 70.5 % (47-70); Platelet Count 330 K/mm3 (150-450); RBC Distribution Width SD 46.3 fl (35.1-43.9); Red Blood Count 5.12 M/mm3 (4.2-5.4); White Blood Count 11.3 K/mm3 (4.4-11.0)
[2021-03-02 22:50] LABS: Anion Gap 6 (5-15); BUN 16 mg/dL (7-18); BUN/Creat Ratio 24.2 RATIO (10-20); Calcium,Total 9.4 mg/dL (8.5-10.1); Chloride 104 mmol/L (98-107); Creatinine, Serum 0.66 mg/dL (0.55-1.02); EST Glomerular Filtration Rate 98 mL/min (>60); Est Glom Filt Rate - Afr Amer 118 mL/min (>60); Estimated Creatinine Clearance 80.23 ml/min; Glucose 120 mg/dL (74-106); Potassium 4.2 mmol/L (3.5-5.1); Sodium Level 137 mmol/L (136-145); Troponin-I HS 5 pg/mL (3.0-54.0)
[2021-03-02 23:24] VITALS: BP 155/98; PULSE 83; RESP 15; O2SAT 95
[2021-03-03 00:12] LABS: Troponin-I HS 6 pg/mL (3.0-54.0)
[2021-03-03 00:26] VITALS: BP 182/94; PULSE 89; RESP 15; O2SAT 97
== END 2021-03-03 00:27 | disposition home or self-care (01) ==
PROVIDERS: Emergency Provider Student in an Organized Health Care Education/Training Program; PCP Family Medicine
DX: R07.9 Chest pain, unspecified (principal); J43.2 Centrilobular emphysema; I10 Essential (primary) hypertension; K21.9 Gastro-esophageal reflux disease without esophagitis; F41.9 Anxiety disorder, unspecified; F17.200 Nicotine dependence, unspecified, uncomplicated; Z79.51 Long term (current) use of inhaled steroids; Z79.899 Other long term (current) drug therapy; Z86.16 Personal history of COVID-19; Z86.711 Personal history of pulmonary embolism
CPT/HCPCS: 71045; 71275; 80048; 84484; 85025; 93005; 99285; J7040; Q9967; A4216

== ENCOUNTER → 2022-06-11 | Outpatient (CLI) | payer MEDICARE, MEDICAID, SELFPAY ==
[2022-06-11 11:12] LABS: D-Dimer Quantitative (DVT/PE) < 0.27 FEU/ug/m (0.27-0.49)
== END | disposition home or self-care (01) ==
PROVIDERS: PCP Family Medicine
DX: R06.00 Dyspnea, unspecified (principal); R06.89 Other abnormalities of breathing
CPT/HCPCS: 85379

== ENCOUNTER 2022-09-14 18:23 | Emergency (ER) | payer MEDICARE, MEDICAID, SELFPAY ==
[2022-09-14 18:24] VITALS: BP 154/87; PULSE 125; RESP 24; TEMP 37.1; O2SAT 98; BMI 23.6
[2022-09-14 18:50] VITALS: BP 162/90; PULSE 122; RESP 16; TEMP 37.4; O2SAT 98
--- NOTE | 2022-09-14 18:50 | ED.VIS.DYS ---
HPI History of Present Illness Chief Complaint: Shortness of Breath Narrative Narrative: 62-year-old female presenting with cough, shortness of breath, fevers, chills. She states she was seen at [facility] for this on Tuesday. She was tested for COVID and was negative. She states she had lab work which was normal. She states that her chest x-ray was normal also. She was not put on antibiotics. She still continues to have fever. [facility] Medical History Anxiety Emphysema lung GERD (gastroesophageal reflux disease) HTN (hypertension) Home Medications clonazepam 1 mg tablet (Klonopin) 1 mg PO QHS 08/13/13 [History Last Taken Unknown] omeprazole 20 mg capsule,delayed release 20 mg PO BID 08/13/13 [History Last Taken Unknown] albuterol sulfate 2.5 mg/3 mL (0.083 %) solution for nebulization 2.5 mg inhalation Q4H PRN PRN Wheezing 04/04/17 [History Last Taken Unknown] amlodipine 5 mg tablet 5 mg PO DAILY 02/13/21 [History Last Taken Unknown] clonazepam 0.5 mg tablet 0.5 mg PO DAILY 02/13/21 [History Last Taken Unknown] docusate sodium 100 mg capsule (DOK) 100 mg PO BID 02/13/21 [History Last Taken Unknown] fluticasone fur. 100 mcg-umeclid 62.5 mcg-vilant 25 mcg inhalat.powder (Trelegy Ellipta) 1 ea inhalation DAILY 02/13/21 [History Last Taken Unknown] ipratropium 0.5 mg-albuterol 3 mg (2.5 mg base)/3 mL nebulization soln 3 ml inhalation Q8H PRN shortness of breath or wheezing #90 mL 02/23/21 [Rx Last Taken Unknown] mupirocin 2 % topical ointment 1 applic topical BID #15 grams 02/23/21 [Rx Last Taken Unknown] levofloxacin 500 mg tablet 500 mg PO DAILY #7 tabs 09/14/22 [Rx Last Taken Unknown] Allergy/AdvReac Type Severity Reaction Status Date / Time amoxicillin [Amoxicillin] Allergy Shortness Verified 09/14/22 18:24 of breath Antihistamines - Alkylamine Allergy Other Verified 09/14/22 18:24 ciprofloxacin [From Cipro] Allergy Shortness Verified 09/14/22 18:24 of breath ciprofloxacin HCl Allergy Shortness Verified 09/14/22 18:24 [From Cipro] of breath codeine Allergy Shortness Verified 09/14/22 18:24 of breath hydrocodone bitartrate Allergy Shortness Verified 09/14/22 18:24 [From Vicodin] of breath Penicillins Allergy Hives Verified 09/14/22 18:24 sulfamethoxazole Allergy Shortness Verified 09/14/22 18:24 [From Bactrim] of breath trimethoprim [From Bactrim] Allergy Shortness Verified 09/14/22 18:24 of breath acetaminophen [From Percocet] AdvReac Vomiting Verified 09/14/22 18:24 beclomethasone dipropionate AdvReac Other Verified 09/14/22 18:24 [From Qvar] oxycodone HCl [From Percocet] AdvReac Vomiting Verified 09/14/22 18:24 tramadol AdvReac Shortness Verified 09/14/22 18:24 of breath Surgical History History of hysterectomy Social History Smoking Status: Current every day smoker tobacco type: smokeless tobacco EXAM Physical Exam Const Vital Signs: 09/14/22 18:24 09/14/22 18:48 09/14/22 18:50 Temperature 98.8 F 99.4 F H Temperature Source Temporal Oral Pulse Rate 125 H 122 H Respiratory Rate 24 H 16 Blood Pressure 154/87 H 162/90 H Blood Pressure Mean 109 114 Pulse Ox 98 98 Oxygen Delivery Method Room Air Room Air Room Air 09/14/22 20:11 09/14/22 20:26 Temperature 98.6 F Temperature Source Oral Pulse Rate 125 H 123 H Respiratory Rate 20 H 28 H Blood Pressure 143/89 H 155/81 H Blood Pressure Mean 107 105 Pulse Ox 95 95 Oxygen Delivery Method Room Air Room Air MDM MDM MDM Narrative Medical decision making narrative: Presenting with shortness of breath. This has been ongoing since last week. She was seen and evaluated at [facility]. She had negative lab work. She had a negative D-dimer. Tested negative for COVID. I reviewed this in the medical record. Patient was discharged home. She reports fevers, worsening dyspnea. She is not having any chest pain. She does have history of DVT in the past however she was just tested with D-dimer which was negative. Patient presenting with tachycardia and tachypnea. Sepsis work-up initiated. Patient given a liter of normal saline. Differential at this point includes viral syndrome, pneumonia, ACS. EKG was obtained and shows a sinus rhythm at a tachycardic rate at 119 bpm without sign of ischemic change. CBC was obtained and shows a slight leukocytosis at 12.1. Left shift. Hemoglobin monitor stable. Coagulation studies are normal. D-dimer 0.52 and is negative when age-adjusted. Renal function electrolytes within normal limits. Glucose 137 without anion gap. Lactic acid 1.0. Urinalysis negative for infection. Chest x-ray on my interpretation shows left lower lobe infiltrate. The radiology interprets this and agrees. Patient is still little tachycardic which he received a liter of fluid. This does not change if he ambulates or if she sits in bed. She is not lightheaded or dizzy. Discussed discharge with her and she is amenable to discharge. She states that she typically has to be put on Levaquin because she does not tolerate other medications. She is given 500 mg here in the ED. She is given a prescription for home. Return precautions discussed. Impression: 1. Pneumonia 2. Dyspnea Lab Data Attestation: I reviewed the patient's lab results. Labs: Laboratory Results - last 24 hr 09/14/22 09/14/22 09/14/22 18:43 18:43 18:43 WBC 12.1 H RBC 5.39 Hgb 16.3 H Hct 50.1 H MCV 92.9 MCH 30.2 MCHC 32.5 RDW Std Deviation 46.5 H RDW Coeff of Wilber 13.6 Plt Count 233 MPV 9.0 Immature Gran % (Auto) 0.400 Neut % (Auto) 83.0 H Lymph % (Auto) 9.8 L Esmeralda % (Auto) 6.5 Eos % (Auto) 0.1 Baso % (Auto) 0.2 Absolute Neuts (auto) 10.0 H Absolute Lymphs (auto) 1.18 Nucleated RBC % 0 PT 13.8 INR 1.1 APTT 27.2 D-Dimer Quant (PE/DVT) 0.52 H* Sodium 136 Potassium 4.2 Chloride 105 Carbon Dioxide 26.0 Anion Gap 5 BUN 14 Creatinine 0.88 Estim Creat Clear Calc 58.71 Est GFR (MDRD) Af Amer 84 Est GFR (MDRD) Non-Af 70 BUN/Creatinine Ratio 15.9 Glucose 137 H Lactic Acid Calcium 9.4 Total Bilirubin 0.60 AST 19 ALT 23 Alkaline Phosphatase 106 Total Protein 8.0 Albumin 4.0 Globulin 4.0 Albumin/Globulin Ratio 1.0 Urine Color Urine Clarity Urine pH Ur Specific [place] Urine Protein Urine Glucose (UA) Urine Ketones Urine Occult Blood Urine Nitrite Urine Bilirubin Urine Urobilinogen Ur Leukocyte Esterase Urine RBC Urine WBC Ur Squamous Epith Cells Urine Bacteria Urine Mucus 09/14/22 09/14/22 18:43 19:15 WBC RBC Hgb Hct MCV MCH MCHC RDW Std Deviation RDW Coeff of Wilber Plt Count MPV Immature Gran % (Auto) Neut % (Auto) Lymph % (Auto) Esmeralda % (Auto) Eos % (Auto) Baso % (Auto) Absolute Neuts (auto) Absolute Lymphs (auto) Nucleated RBC % PT INR APTT D-Dimer Quant (PE/DVT) Sodium Potassium Chloride Carbon Dioxide Anion Gap BUN Creatinine Estim Creat Clear Calc Est GFR (MDRD) Af Amer Est GFR (MDRD) Non-Af BUN/Creatinine Ratio Glucose Lactic Acid 1.0 Calcium Total Bilirubin AST ALT Alkaline Phosphatase Total Protein Albumin Globulin Albumin/Globulin Ratio Urine Color Yellow Urine Clarity Clear Urine pH 7.0 Ur Specific [place] 1.010 Urine Protein 15 H Urine Glucose (UA) Normal Urine Ketones Negative Urine Occult Blood 10 H Urine Nitrite Negative Urine Bilirubin Negative Urine Urobilinogen 1 H Ur Leukocyte Esterase 500 H Urine RBC 0-5 SEEN Urine WBC 0-5 SEEN Ur Squamous Epith Cells 0-5 SEEN Urine Bacteria 0 SEEN Urine Mucus 0 SEEN Radiography Diagnostic Testing: Clinical Impression(s) from Imaging Studies Chest X-Ray 09/14/22 18:55 IMPRESSION: Left lower lobe infiltrate consistent with pneumonia. Recommend follow-up to resolution. Electronically Signed: Aryan Molina MD at 19:09 EDT Reading Location ID and State: [facility] / [place] Tel , Service support , Discharge Plan Triage Chief Complaint: Shortness of Breath Other Complaint: Cough Fever ED Provider: Damian Guevara Dx/Rx/DC Orders Instructions: ED Pneumonia (Adult) Prescriptions: New levofloxacin 500 mg tablet 500 mg PO DAILY Qty: 7 0RF No Action clonazepam [Klonopin] 1 MG tablet 1 mg PO QHS omeprazole 20 MG capsule 20 mg PO BID albuterol sulfate 2.5 MG/3 ML solution for nebulization 2.5 mg inhalation Q4H PRN PRN (Reason: Wheezing) clonazepam 0.5 mg tablet 0.5 mg PO DAILY Label Comments: take 1/2 tablet by mouth DURING THE DAY, AND 2 tablets at bedtime amlodipine 5 mg Tablet 5 mg PO DAILY docusate sodium [DOK] 100 mg capsule 100 mg PO BID Label Comments: take 1 capsule by mouth twice a day if needed for constipation Trelegy Ellipta 100-62.5-25 mcg blister with device 1 ea INHALATION DAILY Label Comments: inhale 1 dose by mouth once daily as directed mupirocin 2 % ointment 1 applic topical BID Qty: 15 0RF ipratropium-albuterol 0.5 mg-3 mg(2.5 mg base)/3 mL solution for nebulization 3 ml inhalation Q8H PRN (Reason: shortness of breath or wheezing) Qty: 90 0RF Primary Care Provider: Romaine Nash Referrals: Romaine Nash MD [Primary Care Provider] - Disposition Disposition: Home, Self Care
--- NOTE | 2022-09-14 18:55 | RAD_ITS ---
INDICATION: dyspnea EXAMINATION/TECHNIQUE: X-RAY - portable upright AP chest x-ray COMPARISON: 03/02/2021 FINDINGS: LINES/DEVICES: None. LUNGS: Focal infiltrate at the left lower lung field, likely left lower lobe with minimal blunting of the left costophrenic angle. MEDIASTINUM AND CARDIOVASCULAR STRUCTURES: Cardiac silhouette stable within normal limits. BONES AND SOFT TISSUES: Unremarkable. RAD/Chest 1 View (Portable) IMPRESSION: Left lower lobe infiltrate consistent with pneumonia. Recommend follow-up to resolution. Electronically Signed: Aryan Molina MD at 19:09 EDT ,
[2022-09-14 18:57] LABS: Absolute Lymphocyte Count 1.18 X10^3/uL (0.83-4.51); Basophil# 0.03 X10^3/uL; Basophil% 0.2 % (0-1); Eosinophil# 0.01 X10^3/uL; Eosinophils% 0.1 % (0-5); Hematocrit 50.1 % (37-47); Hemoglobin 16.3 g/dL (12.0-15.0); Lymphocyte # 1.18 X10^3/ul (0.83-4.51); Lymphocyte % 9.8 % (19-41); Mean Corp Hgb Conc 32.5 g/dL (32-36); Mean Corpuscular Hgb 30.2 pg (27.0-32.0); Mean Corpuscular Volume 92.9 fL (81-99); Monocyte# 0.78 X10^3/uL; Monocyte% 6.5 % (0-10); NRBC Flagged by Analyzer 0 % (0-5); Neutrophil # 10.04 X10^3/uL (2.7-7.7); Platelet Count 233 K/mm3 (150-450); RBC Distribution Width CV 13.6 % (11.6-14.6); RBC Distribution Width SD 46.5 fl (35.1-43.9); Red Blood Count 5.39 M/mm3 (4.2-5.4); White Blood Count 12.1 K/mm3 (4.4-11.0)
[2022-09-14 19:12] LABS: AST(SGOT) 19 U/L (15-37); Alanine Aminotransfer ALT/SGPT 23 U/L (13-56); Alkaline Phosphatase 106 U/L (45-117); Anion Gap 5 (5-15); BUN 14 mg/dL (7-18); BUN/Creat Ratio 15.9 RATIO (10-20); Calcium,Total 9.4 mg/dL (8.5-10.1); Chloride 105 mmol/L (98-107); Creatinine, Serum 0.88 mg/dL (0.55-1.02); EST Glomerular Filtration Rate 70 mL/min (>60); Est Glom Filt Rate - Afr Amer 84 mL/min (>60); Estimated Creatinine Clearance 58.71 ml/min; Glucose 137 mg/dL (74-106); Potassium 4.2 mmol/L (3.5-5.1); Sodium Level 136 mmol/L (136-145)
[2022-09-14 19:20] LABS: Bacteria 0 SEEN /hpf (None Seen); Mucous, Urine 0 SEEN /hpf (<or=2+)
[2022-09-14 19:21] LABS: International Normalized Ratio 1.1; Partial Thromboplast Time 27.2 Seconds (24.1-36.2); Prothrombin Time (Protime)PT. 13.8 SECONDS (11.7-14.9)
[2022-09-14 19:21] LABS: Glucose, Dipstick Normal (Normal); Ketone-Dipstick Negative (Negative); Leukocyte Esterase-Dipstick 500 /ul (Negative); Nitrite-Dipstick Negative (Negative); Occult Blood-Urine 10 /ul (Negative); Protein-Dipstick 15 mg/dl (Negative); Urine Bilirubin Dipstick Negative (Negative); Urine Urobilinogen 1 mg/dl (Normal)
[2022-09-14 19:28] LABS: Color, Urine Yellow (Yellow); Red Blood Cells-Urine 0-5 SEEN /hpf (0-5); Urine Clarity Clear (Clear); White Blood Cells 0-5 SEEN /hpf (0-5)
[2022-09-14 19:29] LABS: Squamous Epithelial Cells - UA 0-5 SEEN /hpf (5-10)
[2022-09-14 19:42] LABS: D-Dimer Quantitative (DVT/PE) 0.52 FEU/ug/m (0.27-0.49)
[2022-09-14 20:11] VITALS: BP 143/89; PULSE 125; RESP 20; TEMP 37; O2SAT 95
[2022-09-14 20:26] VITALS: BP 155/81; PULSE 123; RESP 28; O2SAT 95
[2022-09-14] MEDS: levoFLOXacin 500 MG Tablet PO (20:43)
[2022-09-14 20:46] VITALS: BP 166/91; PULSE 123; RESP 19; O2SAT 95
== END 2022-09-14 21:33 | disposition home or self-care (01) ==
PROVIDERS: Emergency Provider Student in an Organized Health Care Education/Training Program; PCP Family Medicine; Visit Provider Student in an Organized Health Care Education/Training Program
DX: J18.9 Pneumonia, unspecified organism (principal); J43.9 Emphysema, unspecified; F17.220 Nicotine dependence, chewing tobacco, uncomplicated; I10 Essential (primary) hypertension
CPT/HCPCS: 71045; 80053; 81001; 83605; 85025; 85379; 85610; 85730; 87040; 87086; 87088; 93005; 99284

== ENCOUNTER 2023-03-14 09:12 | Emergency (ER) | payer MEDICARE, MEDICAID, SELFPAY ==
[2023-03-14 09:13] VITALS: BP 125/79; PULSE 82; RESP 18; TEMP 36.6; O2SAT 96; BMI 25.9
[2023-03-14 09:20] VITALS: O2SAT 95
--- NOTE | 2023-03-14 10:17 | EX.ED.DYSGE1 ---
HPI History of Present Illness Chief Complaint: Cough Informant: patient Narrative Narrative: 62-year-old female presenting to the emergency department chief complaint of cough. Patient states that last she developed a cough with some sputum production. On Tuesday she went to outside emergency department where she states she had a COVID test that was negative. She was told that she had a viral illness. She went home and Tuesday evening developed vomiting. She states she also had increased phlegm production. She also developed a fever. Last dose of Tylenol was this morning. She states that she has not had any diarrhea or rashes. No sore throat. She uses a nebulizer 4 times a day the last use however was at 2200 hrs. last night. The patient states she called her primary care doctor's office who advised her to come to emergency. Patient notes a history of COPD/emphysema. [facility] Medical History Anxiety Asthma Emphysema lung GERD (gastroesophageal reflux disease) HTN (hypertension) Home Medications clonazepam 1 mg tablet (Klonopin) 1 mg PO QHS 08/13/13 [History Last Taken Unknown] omeprazole 20 mg capsule,delayed release 20 mg PO BID 08/13/13 [History Last Taken Unknown] albuterol sulfate 2.5 mg/3 mL (0.083 %) solution for nebulization 2.5 mg inhalation Q4H PRN PRN Wheezing 04/04/17 [History Last Taken Unknown] amlodipine 5 mg tablet 5 mg PO DAILY 02/13/21 [History Last Taken Unknown] clonazepam 0.5 mg tablet 0.5 mg PO DAILY 02/13/21 [History Last Taken Unknown] docusate sodium 100 mg capsule (DOK) 100 mg PO BID 02/13/21 [History Last Taken Unknown] fluticasone fur. 100 mcg-umeclid 62.5 mcg-vilant 25 mcg inhalat.powder (Trelegy Ellipta) 1 ea inhalation DAILY 02/13/21 [History Last Taken Unknown] ipratropium 0.5 mg-albuterol 3 mg (2.5 mg base)/3 mL nebulization soln 3 ml inhalation Q8H PRN shortness of breath or wheezing #90 mL 02/23/21 [Rx Last Taken Unknown] mupirocin 2 % topical ointment 1 applic topical BID #15 grams 02/23/21 [Rx Last Taken Unknown] levofloxacin 500 mg tablet 500 mg PO DAILY #7 tabs 09/14/22 [Rx Last Taken Unknown] albuterol sulfate 2.5 mg/3 mL (0.083 %) solution for nebulization 2.5 mg (3 mL) inhalation Q4H PRN #25 vials 03/14/23 [Rx Last Taken Unknown] ondansetron 4 mg disintegrating tablet 4 mg PO Q6H PRN PRN Nausea #10 tabs 03/14/23 [Rx Last Taken Unknown] Allergy/AdvReac Type Severity Reaction Status Date / Time amoxicillin [Amoxicillin] Allergy Shortness Verified 03/14/23 09:16 of breath Antihistamines - Alkylamine Allergy Other Verified 03/14/23 09:16 ciprofloxacin [From Cipro] Allergy Shortness Verified 03/14/23 09:16 of breath ciprofloxacin HCl Allergy Shortness Verified 03/14/23 09:16 [From Cipro] of breath codeine Allergy Shortness Verified 03/14/23 09:16 of breath hydrocodone bitartrate Allergy Shortness Verified 03/14/23 09:16 [From Vicodin] of breath Penicillins Allergy Hives Verified 03/14/23 09:16 sulfamethoxazole Allergy Shortness Verified 03/14/23 09:16 [From Bactrim] of breath trimethoprim [From Bactrim] Allergy Shortness Verified 03/14/23 09:16 of breath acetaminophen [From Percocet] AdvReac Vomiting Verified 03/14/23 09:16 beclomethasone dipropionate AdvReac Other Verified 03/14/23 09:16 [From Qvar] oxycodone HCl [From Percocet] AdvReac Vomiting Verified 03/14/23 09:16 tramadol AdvReac Shortness Verified 03/14/23 09:16 of breath Surgical History History of hysterectomy Social History Smoking Status: Current every day smoker tobacco type: cigarettes and smokeless tobacco ROS ROS ED Constitutional Constitutional ED: Reports chills, fever(s) and sweats; Denies weight loss Eyes Eyes: Denies change in vision or diplopia ENT ENT ED: Denies ear pain, rhinorrhea or sore throat Cardiovascular Cardiovascular: Denies chest pain, orthopnea, palpitations or racing heartbeat Respiratory/Chest Respiratory/Chest: Reports cough, dyspnea and dyspnea on exertion; Denies orthopnea Gastrointestinal Gastrointestinal: Reports nausea and vomiting; Denies abdominal pain, constipation, diarrhea or melena Genitourinary Genitourinary ED: Denies dysuria, hematuria or urinary frequency Musculoskeletal Musculoskeletal: Denies arthralgias or myalgias Integumentary Denies abscess or rash Neurologic Neurologic: Denies headache(s) or weakness Psychiatric Psychiatric: Denies anxiety, depression, suicidal ideation or suicidal thoughts Endocrine Endocrinology: Denies polydipsia, polyphagia or polyuria Allergic/Immunologic Allergic/Immunologic ED: Denies mouth swelling, tongue swelling or urticaria EXAM Physical Exam Const Vital Signs: 03/14/23 09:13 03/14/23 09:20 Temperature 98 F Temperature Source Temporal Pulse Rate 82 Respiratory Rate 18 Respiratory Effort Short of Breath Respiratory Pattern Normal Blood Pressure 125/79 H Blood Pressure Mean 94 Pulse Ox 96 Oxygen Delivery Method Room Air Room Air MDM MDM MDM Narrative Medical decision making narrative: Interpretation of the chest x-ray is no acute process. White count is 8.7. CMP showed a glucose of 123. Normal lipase. Patient is currently afebrile she received IV fluids as well as Zofran. Patient most likely has a viral illness. She has a nebulizer at home but needs solution. She states she cannot take steroids due to their side effects on her heart. She has not currently no fever no elevation white count no infiltrate. Patient will be treated symptomatically at home. Lab Data Attestation: I reviewed the patient's lab results. Labs: Laboratory Results - last 24 hr 03/14/23 10:20 WBC 8.7 RBC 5.13 Hgb 15.1 H Hct 46.9 MCV 91.4 MCH 29.4 MCHC 32.2 RDW Std Deviation 45.0 H RDW Coeff of Wilber 13.2 Plt Count 182 MPV 9.1 Immature Gran % (Auto) 0.200 Neut % (Auto) 72.6 H Lymph % (Auto) 16.6 L [place] % (Auto) 10.3 H Eos % (Auto) 0.1 Baso % (Auto) 0.2 Absolute Neuts (auto) 6.3 Absolute Lymphs (auto) 1.44 Nucleated RBC % 0 Sodium 136 Potassium 3.9 Chloride 105 Carbon Dioxide 27.0 Anion Gap 4 L BUN 13 Creatinine 0.77 Estim Creat Clear Calc 64.27 Est GFR (MDRD) Af Amer 98 Est GFR (MDRD) Non-Af 81 BUN/Creatinine Ratio 16.9 Glucose 123 H Calcium 8.8 Total Bilirubin 0.60 AST 20 ALT 23 Alkaline Phosphatase 103 Total Protein 7.3 Albumin 3.4 Globulin 3.9 Albumin/Globulin Ratio 0.9 Lipase 26 Radiography Diagnostic Testing: Clinical Impression(s) from Imaging Studies Chest X-Ray 03/14/23 10:45 IMPRESSION: Persistent increased markings at the lung bases worse on the left side although there has been improvement as compared to prior study. This may represent either atelectasis and/or infiltrate superimposed on scarring. Radiographic follow-up is recommended. Electronically Signed: Victorino Holt MD at 10:56 EDT , Discharge Plan Triage Chief Complaint: Cough ED Provider: Alexander Mayfield Dx/Rx/DC Orders Clinical Impression: Bronchitis, Vomiting Instructions: ED Bronchitis, No Antibiotic (Adult), ED Vomiting (Adult) Prescriptions: New albuterol sulfate 2.5 mg /3 mL (0.083 %) solution for nebulization 2.5 mg inhalation Q4H PRN Qty: 25 0RF Rx Instructions: Use q4 hours and PRN for wheezing ondansetron [ondansetron] 4 mg tablet,disintegrating 4 mg PO Q6H PRN PRN (Reason: Nausea) Qty: 10 0RF No Action clonazepam [Klonopin] 1 MG tablet 1 mg PO QHS omeprazole 20 MG capsule 20 mg PO BID albuterol sulfate 2.5 MG/3 ML solution for nebulization 2.5 mg inhalation Q4H PRN PRN (Reason: Wheezing) clonazepam 0.5 mg tablet 0.5 mg PO DAILY Patient Comments: take 1/2 tablet by mouth DURING THE DAY, AND 2 tablets at bedtime amlodipine 5 mg Tablet 5 mg PO DAILY docusate sodium [DOK] 100 mg capsule 100 mg PO BID Patient Comments: take 1 capsule by mouth twice a day if needed for constipation Trelegy Ellipta 100-62.5-25 mcg blister with device 1 ea INHALATION DAILY Patient Comments: inhale 1 dose by mouth once daily as directed mupirocin 2 % ointment 1 applic topical BID Qty: 15 0RF ipratropium-albuterol 0.5 mg-3 mg(2.5 mg base)/3 mL solution for nebulization 3 ml inhalation Q8H PRN (Reason: shortness of breath or wheezing) Qty: 90 0RF levofloxacin 500 mg tablet 500 mg PO DAILY Qty: 7 0RF Primary Care Provider: Romaine Nash Referrals: Romaine Nash MD [Primary Care Provider] - 1 Week if not improving Disposition Disposition: Home, Self Care
[2023-03-14] MEDS: 0.9% Normal Saline (1000mL) 1,000 ML 1000 ML IV (10:29)
[2023-03-14] MEDS: Ondansetron 4 MG/2 ML Vial IV (10:30)
[2023-03-14 10:32] LABS: Absolute Lymphocyte Count 1.44 X10^3/uL (0.83-4.51); Absolute Neutrophil Count 6.3 X10^3/uL (2.0-7.7); Basophil# 0.02 X10^3/uL; Basophil% 0.2 % (0-1); Eosinophil# 0.01 X10^3/uL; Eosinophils% 0.1 % (0-5); Hematocrit 46.9 % (37-47); Hemoglobin 15.1 g/dL (12.0-15.0); Lymphocyte # 1.44 X10^3/ul (0.83-4.51); Lymphocyte % 16.6 % (19-41); Mean Corp Hgb Conc 32.2 g/dL (32-36); Mean Corpuscular Hgb 29.4 pg (27.0-32.0); Mean Corpuscular Volume 91.4 fL (81-99); Mean Platelet Vol. 9.1 fl (6.2-12.0); Monocyte# 0.89 X10^3/uL; Monocyte% 10.3 % (0-10); NRBC Flagged by Analyzer 0 % (0-5); Neutrophil % 72.6 % (47-70); Platelet Count 182 K/mm3 (150-450); RBC Distribution Width CV 13.2 % (11.6-14.6); Red Blood Count 5.13 M/mm3 (4.2-5.4); White Blood Count 8.7 K/mm3 (4.4-11.0)
[2023-03-14 10:42] LABS: ALB/GLOB Ratio 0.9 RATIO (0.9-2.4); AST(SGOT) 20 U/L (15-37); Alanine Aminotransfer ALT/SGPT 23 U/L (13-56); Albumin, Serum 3.4 g/dL (3.2-5.0); Alkaline Phosphatase 103 U/L (45-117); Anion Gap 4 (5-15); BUN 13 mg/dL (7-18); BUN/Creat Ratio 16.9 RATIO (10-20); Calcium,Total 8.8 mg/dL (8.5-10.1); Chloride 105 mmol/L (98-107); Creatinine, Serum 0.77 mg/dL (0.55-1.02); EST Glomerular Filtration Rate 81 mL/min (>60); Est Glom Filt Rate - Afr Amer 98 mL/min (>60); Estimated Creatinine Clearance 64.27 ml/min; Globulin 3.9 g/dL (2.2-4.2); Glucose 123 mg/dL (74-106); Lipase 26 U/L (13-75); Potassium 3.9 mmol/L (3.5-5.1); Protein, Total 7.3 g/dL (6.4-8.2); Sodium Level 136 mmol/L (136-145)
--- NOTE | 2023-03-14 10:45 | RAD_ITS ---
STUDY: X-RAY CHEST REASON FOR EXAM: Female, 62 years old. Cough -- -- PT WITH Cough, congestion AND VOMITING. STATES TOOK HOME COVID WAS NEGATIVE TECHNIQUE: Single AP portable view of the chest. COMPARISON: Comparison is made with prior study dated September 14, 2022. FINDINGS: Hyperinflation. Decreased lung markings in the upper lobes suggestive of emphysematous change. Persistent mild increased markings at the lung bases left worse on the left side although there has been improvement as compared to prior study. This may represent either scarring with superimposed atelectasis and/or infiltrate. Radiographic follow-up is recommended. There is no demonstrated pleural abnormality. Normal size heart. Normal mediastinum and nafisa. Normal visualized pulmonary arteries. Normal visualized aortic arch and descending thoracic aorta. Normal visualized thoracic spine. Normal visualized ribs, clavicles, and shoulders. There is no demonstrated abnormality of the visualized soft tissue structures of the upper abdomen. RAD/Chest 1 View (Portable) IMPRESSION: Persistent increased markings at the lung bases worse on the left side although there has been improvement as compared to prior study. This may represent either atelectasis and/or infiltrate superimposed on scarring. Radiographic follow-up is recommended. Electronically Signed: Victorino Holt MD at 10:56 EDT ,
== END 2023-03-14 12:04 | disposition home or self-care (01) ==
PROVIDERS: Emergency Provider Emergency Medicine; PCP Family Medicine; Visit Provider Emergency Medicine
DX: J40 Bronchitis, not specified as acute or chronic (principal); R11.10 Vomiting, unspecified; I10 Essential (primary) hypertension; F17.210 Nicotine dependence, cigarettes, uncomplicated; F41.9 Anxiety disorder, unspecified; K21.9 Gastro-esophageal reflux disease without esophagitis; Z79.899 Other long term (current) drug therapy
CPT/HCPCS: 71045; 80053; 83690; 85025; 87428; 96361; 96374; 99283; J7030; A4216; J2405

== ENCOUNTER 2024-06-09 08:39 | Emergency (ER) | payer MEDICARE, MEDICAID, SELFPAY ==
[2024-06-09 08:40] VITALS: BP 151/79; PULSE 110; RESP 20; TEMP 36.6; O2SAT 96; BMI 19.1
--- NOTE | 2024-06-09 09:02 | CT_ITS ---
EXAM: CT HEAD WITHOUT INTRAVENOUS CONTRAST CLINICAL INDICATION: Confusion. TECHNIQUE: Multiple axial images were obtained of the head without intravenous contrast. This CT exam was performed using one or more of the following dose reduction techniques: automated exposure control, adjustment of the mA and/or kV according to patient size, and/or use of iterative reconstruction technique. RADIATION DOSE: CTDIvol = 44.99 mGy, DLP = 796.11 mGy-cm COMPARISON: CT head without contrast 08/12/2014. FINDINGS: BRAIN AND EXTRA-AXIAL SPACES: Confluent white matter hypodensities in the forceps major chronic white matter ischemic changes. No intracranial bleeding. No midline shift and no mass effects. Moderate dilatation of the lateral ventricles due to central atrophy more than cerebral cortical atrophy. No communicating or noncommunicating hydrocephalus. Posterior fossa structures are unremarkable. Basal cisterns are patent. BONES/JOINTS: Unremarkable. No discrete lytic or blastic abnormalities. VASCULATURE: Calcified plaques in the cavernous segments of both internal carotid arteries. SINUSES: Unremarkable as visualized. Clear. MASTOID AIR CELLS: Unremarkable. Clear. ORBITS: Visualized globes, extraocular muscles, optic nerves and retrobulbar fat appear unremarkable. CT/Brain/Head without Contrast IMPRESSION: 1. No acute findings in the head/brain. 2. Confluent chronic white matter ischemic changes in the forceps major both cerebral hemispheres, new since 08/12/2014. Electronically Signed: Ricky Hernandez MD at 11:06 EST ,
--- NOTE | 2024-06-09 09:02 | EKG12_ITS ---
Test Reason : CONFUSION Blood Pressure : */* mmHG Vent. Rate : 103 BPM Atrial Rate : 103 BPM P-R Int : 156 ms QRS Dur : 94 ms QT Int : 370 ms P-R-T Axes : 80 105 59 degrees QTcB Int : 484 ms Sinus tachycardia Biatrial enlargement Rightward axis Pulmonary disease pattern Abnormal ECG Confirmed by TOMMY COBIAN, KENTRELL ([id number]), movie editor MONTRELL CURRY ([id number]) on 06/11/2024 8:37:50 AM Referred By: Confirmed By: KENTRELL SANDERS MD
--- NOTE | 2024-06-09 09:04 | EX.ED.DYSGE1 ---
HPI History of Present Illness Chief Complaint: Confusion Detail of Chief Complaint: Anxiety and paranoia Informant: patient and family Narrative Narrative: Patient brought to the emergency department via EMS for concern of some confusion as well as increased anxiety and paranoia. Patient history comes from the son who lives with her. She has been losing weight about 20 to 30 pounds over the last year. She had been on Klonopin for years and her primary care physician is currently weaning her off of it. She has had increased confusion for over a month. She was seen at [facility] this morning and they recommended placement to psychiatric facility apparently and at that time they did not feel that they wanted to go that route. Patient did not take her Klonopin yesterday but did take half a tablet today the son's not sure exactly of the dose. Patient's just been more paranoid of late and anxious. Patient has been intermittently complaining of some chest discomfort but none currently. She is very tearful and a poor historian. Patient does not have a power of employment attorney apparently and makes her own decisions still currently. [facility] Medical History Anxiety Asthma Emphysema lung GERD (gastroesophageal reflux disease) HTN (hypertension) Home Medications ?Medication ?Instructions ?Recorded ?Last Taken ?Type clonazepam 1 mg tablet (Klonopin) 1 mg PO QHS 08/13/13 Unknown History omeprazole 20 mg capsule,delayed 20 mg PO BID 08/13/13 Unknown History release albuterol sulfate 2.5 mg/3 mL 2.5 mg inhalation Q4H PRN PRN 04/04/17 Unknown History (0.083 %) solution for nebulization Wheezing amlodipine 5 mg tablet 5 mg PO DAILY 02/13/21 Unknown History clonazepam 0.5 mg tablet 0.5 mg PO DAILY 02/13/21 Unknown History docusate sodium 100 mg capsule 100 mg PO BID 02/13/21 Unknown History (DOK) fluticasone fur. 100 mcg-umeclid 1 ea inhalation DAILY 02/13/21 Unknown History 62.5 mcg-vilant 25 mcg inhalat.powder (Trelegy Ellipta) ipratropium 0.5 mg-albuterol 3 mg 3 ml inhalation Q8H PRN shortness 02/23/21 Unknown Rx (2.5 mg base)/3 mL nebulization of breath or wheezing #90 mL soln mupirocin 2 % topical ointment 1 applic topical BID #15 grams 02/23/21 Unknown Rx levofloxacin 500 mg tablet 500 mg PO DAILY #7 tabs 09/14/22 Unknown Rx albuterol sulfate 2.5 mg/3 mL 2.5 mg (3 mL) inhalation Q4H PRN 03/14/23 Unknown Rx (0.083 %) solution for nebulization #25 vials ondansetron 4 mg disintegrating 4 mg PO Q6H PRN PRN Nausea #10 tabs 03/14/23 Unknown Rx tablet lorazepam 0.5 mg tablet (Ativan) 0.5 mg PO TID PRN anxiety #10 tabs 06/09/24 Unknown Rx Allergy/AdvReac Type Severity Reaction Status Date / Time amoxicillin (Amoxicillin) Allergy Shortness Verified 03/14/23 09:16 of breath Antihistamines - Alkylamine Allergy Other Verified 03/14/23 09:16 ciprofloxacin (From Cipro) Allergy Shortness Verified 03/14/23 09:16 of breath ciprofloxacin HCl (From Allergy Shortness Verified 03/14/23 09:16 Cipro) of breath codeine Allergy Shortness Verified 03/14/23 09:16 of breath hydrocodone bitartrate (From Allergy Shortness Verified 03/14/23 09:16 Vicodin) of breath Penicillins Allergy Hives Verified 03/14/23 09:16 sulfamethoxazole (From Allergy Shortness Verified 03/14/23 09:16 Bactrim) of breath trimethoprim (From Bactrim) Allergy Shortness Verified 03/14/23 09:16 of breath acetaminophen (From Percocet) AdvReac Vomiting Verified 03/14/23 09:16 beclomethasone dipropionate AdvReac Other Verified 03/14/23 09:16 (From Qvar) oxycodone HCl (From Percocet) AdvReac Vomiting Verified 03/14/23 09:16 tramadol AdvReac Shortness Verified 03/14/23 09:16 of breath Surgical History History of hysterectomy Social History Smoking Status: Current every day smoker tobacco type: cigarettes and smokeless tobacco ROS ROS ED Review of Systems ROS Unobtainable: other Constitutional Constitutional ED: Reports lethargy; Denies chills, fever(s), sweats or weight loss Eyes Eyes: Denies blurry vision, change in vision or diplopia ENT ENT ED: Denies rhinorrhea or sore throat Cardiovascular Cardiovascular: Reports chest pain; Denies orthopnea or racing heartbeat Respiratory/Chest Respiratory/Chest: Denies cough, dyspnea, dyspnea on exertion, orthopnea or sputum Gastrointestinal Gastrointestinal: Denies abdominal pain, diarrhea, nausea or vomiting Genitourinary Genitourinary ED: Denies dysuria, hematuria or urinary frequency Musculoskeletal Musculoskeletal: Denies arthralgias, back pain, myalgias or neck pain Integumentary Denies abscess, Abrasions or rash Neurologic Neurologic: Denies headache(s) or weakness Psychiatric Psychiatric: Reports anxiety and other Details: Paranoia ; Denies depression, suicidal ideation or suicidal thoughts Endocrine Endocrinology: Denies polydipsia, polyphagia or polyuria Hematologic/Lymphatic Hematologic/Lymphatic: Denies easy bleeding, easy bruising or lymphadenopathy Allergic/Immunologic Allergic/Immunologic ED: Denies mouth swelling, tongue swelling or urticaria EXAM Physical Exam Narrative Exam Narrative: Awake and alert and answering questions and following commands. Patient tearful. Const Vital Signs: 06/09/24 08:40 06/09/24 10:40 06/09/24 12:00 Temperature 97.8 F Temperature Source Oral Pulse Rate 110 H Respiratory Rate 20 H Blood Pressure 151/79 H 137/81 H 102/68 Blood Pressure Mean 103 99 79 Pulse Ox 96 96 96 Oxygen Delivery Method Room Air Room Air 06/09/24 13:27 Temperature 99.6 F H Temperature Source Oral Pulse Rate 82 Respiratory Rate 18 Blood Pressure 138/83 H Blood Pressure Mean 101 Pulse Ox 96 Oxygen Delivery Method Room Air Positive well nourished and well developed General Appearance ED: well developed and NAD HEENT Reports TM's clear and moist mucous membranes normocephalic and atraumatic; Negative for trauma or tenderness Tympanic Membrane ED: Yes TM's clear Eyes PERRL and EOMs intact bilaterally General Eye ED: Negative for pale conjunctiva or scleral icterus Neck no lymphadenopathy, supple and no JVD General: Negative for tenderness Chest Wall inspection of chest normal and palpation of chest normal Chest: Negative for tenderness Resp normal respiratory effort and clear to auscultation bilaterally Effort and Inspection: Negative for respiratory distress or pain with movement Auscultation: Negative for rhonchi, wheezes or diminished lung sounds Cardio regular rate, regular rhythm, S1 normal heart sound, S2 normal heart sound and no murmurs Peripheral Pulses: pulses 2+ throughout GI normal to inspection, nondistended, normoactive bowel sounds, soft to palpation, non-tender, non-distended and no masses Back/Spine no CVA tenderness and no thoracic nor lumbar tenderness Extremity normal to inspection General Extremety ED: Negative for edema General Extremity: Negative for edema Neuro oriented x3, CN's II-XII intact bilaterally, no sensory deficits noted and gait normal Neuro Narrative: No neurologic deficits on exam. Sensorium / Orientation: awake, alert, oriented to person, oriented to place and oriented to time Motor Exam: strength 5/5 throughout and strength abnormal Psych mental status grossly normal Skin no rashes or lesions noted and no wounds MDM MDM MDM Narrative Medical decision making narrative: Patient presents to the emergency department with complaint of anxiety and some increased paranoia. She is currently being weaned off of her Klonopin. She has not been doing well since the weaning process has begun and had a hard time sleeping. They went to [facility] earlier today but when they were recommended that patient be seen by crisis or social work supervisor they left and came to our emergency department for evaluation. Initially the son stated he did not want her in a psychiatric facility but just wanted to get her help. I had a discussion with her son and recommended felt that she would benefit from a [facility] admission given her symptomatology and medication requirements. He was in agreement initially. I did give patient half milligram of Ativan as she was very anxious and tearful. She felt markedly improved after treatment. CBC with differential obtained was normal. Chemistries unremarkable. LFTs were normal. Urinalysis normal. Talk screen was negative and alcohol was negative. CT scan of the brain without contrast showed confluent chronic white matter ischemic changes in the forceps major both cerebral hemispheres. These findings are new since 2014. No acute findings of intracranial hemorrhage or other acute process. I did have patient evaluated by our social work supervisor. At this time they do not want placement. Patient still makes all her own medical decisions and I feel she is competent to make the decision. Patient states that she is going to try to find a new physician to help with medications. Our social work supervisor will also give them outpatient resources. I do not feel patient needs to be pink slipped as she is not threatening to harm herself or anybody else. Lab Data Attestation: I reviewed the patient's lab results. Labs: Laboratory Results - last 24 hr 06/09/24 06/09/24 09:13 11:28 WBC 8.3 RBC 5.58 H Hgb 15.9 H Hct 48.4 H MCV 86.7 MCH 28.5 MCHC 32.9 RDW Std Deviation 50.8 H RDW Coeff of Wilber 16.3 H Plt Count 195 MPV 9.2 Immature Gran % (Auto) 0.200 Neut % (Auto) 78.7 H Lymph % (Auto) 15.5 L [place] % (Auto) 4.7 Eos % (Auto) 0.4 Baso % (Auto) 0.5 Absolute Neuts (auto) 6.5 Absolute Lymphs (auto) 1.28 Nucleated RBC % 0 Sodium 140 Potassium 3.5 Chloride 107 Carbon Dioxide 22.0 Anion Gap 11 BUN 10 Creatinine 0.65 Estim Creat Clear Calc 70.02 Est GFR (MDRD) Af Amer 120 Est GFR (MDRD) Non-Af 99 BUN/Creatinine Ratio 15.5 Glucose 131 H Calcium 9.5 Total Bilirubin 0.90 AST 18 ALT 18 Alkaline Phosphatase 111 Troponin I High Sens 8 Total Protein 8.0 Albumin 3.9 Globulin 4.1 Albumin/Globulin Ratio 1.0 Urine Color Yellow Urine Clarity Sl. Cloudy Urine pH 6.0 Ur Specific [place] 1.020 Urine Protein 30 H Urine Glucose (UA) Normal Urine Ketones 150 A* Urine Occult Blood 10 H Urine Nitrite Negative Urine Bilirubin 1 H Urine Urobilinogen 1 H Ur Leukocyte Esterase 500 H Urine RBC 5-10 SEEN Urine WBC 10-25 SEEN Ur Squamous Epith Cells 5-10 SEEN Ur Transition Epith Cell 0-5 SEEN Ur Renal Epithelial Cell 0-5 SEEN Urine Bacteria 2+ Urine Mucus 0 SEEN Urine Opiates Screen NEGATIVE Urine Methadone Screen NEGATIVE Ur Barbiturates Screen NEGATIVE Ur Phencyclidine Scrn NEGATIVE Ur Amphetamines Screen NEGATIVE MDMA (Ecstasy) Screen NEGATIVE U Benzodiazepines Scrn NEGATIVE Urine Cocaine Screen NEGATIVE U Cannabinoids Screen NEGATIVE Ur Drug Screen Comment Ethyl Alcohol < 3.0 Radiography Diagnostic Testing: Clinical Impression(s) from Imaging Studies Brain CT 06/09/24 09:02 IMPRESSION: 1. No acute findings in the head/brain. 2. Confluent chronic white matter ischemic changes in the forceps major both cerebral hemispheres, new since 08/12/2014. Electronically Signed: Ricky Hernandez MD at 11:06 EST , EKG Initial EKG: Attestation: I personally reviewed and interpreted this EKG as follows: Comments: Sinus rhythm with ventricular rate of 103 bpm with no acute ST segment change Discharge Plan Triage Chief Complaint: Confusion ED Provider: Randy Bolanos Dx/Rx/DC Orders Clinical Impression: Anxiety, Acute paranoia Instructions: Understanding Benzodiazepines, Anxiety Disorders Tx Prescriptions: New lorazepam [Ativan] 0.5 mg tablet 0.5 mg PO TID PRN (Reason: anxiety) Qty: 10 0RF No Action clonazepam [Klonopin] 1 MG tablet 1 mg PO QHS omeprazole 20 MG capsule 20 mg PO BID albuterol sulfate 2.5 MG/3 ML solution for nebulization 2.5 mg inhalation Q4H PRN PRN (Reason: Wheezing) clonazepam 0.5 mg tablet 0.5 mg PO DAILY Patient Comments: take 1/2 tablet by mouth DURING THE DAY, AND 2 tablets at bedtime amlodipine 5 mg Tablet 5 mg PO DAILY docusate sodium [DOK] 100 mg capsule 100 mg PO BID Patient Comments: take 1 capsule by mouth twice a day if needed for constipation Trelegy Ellipta 100-62.5-25 mcg blister with device 1 ea INHALATION DAILY Patient Comments: inhale 1 dose by mouth once daily as directed mupirocin 2 % ointment 1 applic topical BID Qty: 15 0RF ipratropium-albuterol 0.5 mg-3 mg(2.5 mg base)/3 mL solution for nebulization 3 ml inhalation Q8H PRN (Reason: shortness of breath or wheezing) Qty: 90 0RF levofloxacin 500 mg tablet 500 mg PO DAILY Qty: 7 0RF albuterol sulfate 2.5 mg /3 mL (0.083 %) solution for nebulization 2.5 mg inhalation Q4H PRN Qty: 25 0RF Rx Instructions: Use q4 hours and PRN for wheezing ondansetron [ondansetron] 4 mg tablet,disintegrating 4 mg PO Q6H PRN PRN (Reason: Nausea) Qty: 10 0RF Primary Care Provider: Romaine Nash Referrals: Romaine Nash MD [Primary Care Provider] - Activity Restrictions/Additional Instructions: Follow-up with your primary care physician or follow-up with resources that social work supervisor gave you today. Print Language: Bengali Disposition Disposition: Home, Self Care
[2024-06-09] MEDS: LORazepam 2 MG/ML Syringe 0.5 MG IV (09:14)
[2024-06-09 09:25] LABS: Absolute Lymphocyte Count 1.28 X10^3/uL (0.83-4.51); Absolute Neutrophil Count 6.5 X10^3/uL (2.0-7.7); Basophil# 0.04 X10^3/uL; Basophil% 0.5 % (0-1); Eosinophil# 0.03 X10^3/uL; Eosinophils% 0.4 % (0-5); Hematocrit 48.4 % (37-47); Hemoglobin 15.9 g/dL (12.0-15.0); Lymphocyte # 1.28 X10^3/ul (0.83-4.51); Lymphocyte % 15.5 % (19-41); Mean Corp Hgb Conc 32.9 g/dL (32-36); Mean Corpuscular Hgb 28.5 pg (27.0-32.0); Mean Corpuscular Volume 86.7 fL (81-99); Mean Platelet Vol. 9.2 fl (6.2-12.0); Monocyte# 0.39 X10^3/uL; Monocyte% 4.7 % (0-10); NRBC Flagged by Analyzer 0 % (0-5); Neutrophil % 78.7 % (47-70); Platelet Count 195 K/mm3 (150-450); RBC Distribution Width CV 16.3 % (11.6-14.6); RBC Distribution Width SD 50.8 fl (35.1-43.9); Red Blood Count 5.58 M/mm3 (4.2-5.4); White Blood Count 8.3 K/mm3 (4.4-11.0)
[2024-06-09 09:49] LABS: Alcohol, Blood (Medical)-Serum < 3.0 mg/dL
[2024-06-09 09:55] LABS: AST(SGOT) 18 U/L (15-37); Alanine Aminotransfer ALT/SGPT 18 U/L (13-56); Albumin, Serum 3.9 g/dL (3.2-5.0); Alkaline Phosphatase 111 U/L (45-117); Anion Gap 11 (5-15); BUN 10 mg/dL (7-18); BUN/Creat Ratio 15.5 RATIO (10-20); Calcium,Total 9.5 mg/dL (8.5-10.1); Chloride 107 mmol/L (98-107); Creatinine, Serum 0.65 mg/dL (0.55-1.02); EST Glomerular Filtration Rate 99 mL/min (>60); Est Glom Filt Rate - Afr Amer 120 mL/min (>60); Estimated Creatinine Clearance 70.02 ml/min; Globulin 4.1 g/dL (2.2-4.2); Glucose 131 mg/dL (74-106); Potassium 3.5 mmol/L (3.5-5.1); Sodium Level 140 mmol/L (136-145); Troponin-I HS 8 pg/mL (3.0-54.0)
[2024-06-09 10:40] VITALS: BP 137/81; O2SAT 96
[2024-06-09 11:38] LABS: Mucous, Urine 0 SEEN /hpf (<or=2+)
[2024-06-09 11:39] LABS: Color, Urine Yellow (Yellow); Glucose, Dipstick Normal (Normal); Leukocyte Esterase-Dipstick 500 /ul (Negative); Nitrite-Dipstick Negative (Negative); Occult Blood-Urine 10 /ul (Negative); Protein-Dipstick 30 mg/dl (Negative); Urine Clarity Sl. Cloudy (Clear); Urine Urobilinogen 1 mg/dl (Normal)
[2024-06-09 11:47] LABS: Urine Bilirubin Dipstick 1 mg/dL (Negative)
[2024-06-09 11:48] LABS: Ketone-Dipstick 150 mg/dl (Negative)
[2024-06-09 11:51] LABS: Red Blood Cells-Urine 5-10 SEEN /hpf (0-5); White Blood Cells 10-25 SEEN /hpf (0-5)
[2024-06-09 11:52] LABS: Bacteria 2+ /hpf (None Seen); Renal Epithelial Cells 0-5 SEEN /hpf (0-5); Squamous Epithelial Cells - UA 5-10 SEEN /hpf (5-10); Transitional Epithelial - Ur 0-5 SEEN /hpf (0-5)
[2024-06-09 12:00] VITALS: BP 102/68; O2SAT 96
[2024-06-09 12:00] LABS: Amphetamine Urine VISTA NEGATIVE (<1000 ng/mL); Barbiturate Urine VISTA NEGATIVE (< 200 ng/mL); Benzodiazepine Urine VISTA NEGATIVE (< 200 ng/mL); Cocaine Urine VISTA NEGATIVE (< 300 ng/mL); Ecstacy Urine VISTA NEGATIVE (< 500 ng/mL); Methadone Urine VISTA NEGATIVE (< 300 ng/mL); PCP Urine VISTA NEGATIVE (< 25 ng/mL); THC Urine VISTA NEGATIVE (< 50 ng/mL); Vista UDS pH Range 5
[2024-06-09 13:27] VITALS: BP 138/83; PULSE 82; RESP 18; TEMP 37.6; O2SAT 96
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
[2024-06-09 15:20] VITALS: BP 129/74; PULSE 69; RESP 20; TEMP 36.4; O2SAT 100
== END 2024-06-09 15:21 | disposition home or self-care (01) ==
PROVIDERS: Emergency Provider Emergency Medicine; PCP Family Medicine; Visit Provider Emergency Medicine
DX: F41.9 Anxiety disorder, unspecified (principal); F22 Delusional disorders; I10 Essential (primary) hypertension; F17.210 Nicotine dependence, cigarettes, uncomplicated; F17.220 Nicotine dependence, chewing tobacco, uncomplicated; Z79.899 Other long term (current) drug therapy
CPT/HCPCS: 70450; 80053; 80307; 81001; 82077; 84484; 85025; 87086; 87088; 93005; 96374; 99285; A4216

== ENCOUNTER 2024-06-10 18:00 | Emergency (ER) | payer MEDICARE, MEDICAID, SELFPAY ==
[2024-06-10 18:01] VITALS: BP 146/79; PULSE 120; RESP 18; TEMP 35.8; O2SAT 97; BMI 19.3
--- NOTE | 2024-06-10 18:30 | EDS_ITS ---
HPI HPI - Psych History of Present Illness Chief Complaint: Mental Health [facility] Medical History Anxiety Asthma Emphysema lung GERD (gastroesophageal reflux disease) HTN (hypertension) Home Medications ?Medication ?Instructions ?Recorded ?Last Taken ?Type albuterol sulfate 2.5 mg/3 mL 2.5 mg inhalation Q4H PRN PRN 04/04/17 Unknown History (0.083 %) solution for nebulization Wheezing fluticasone fur. 100 mcg-umeclid 1 ea inhalation DAILY 02/13/21 Unknown History 62.5 mcg-vilant 25 mcg inhalat.powder (Trelegy Ellipta) albuterol sulfate 2.5 mg/3 mL 2.5 mg (3 mL) inhalation Q4H PRN 03/14/23 Unknown Rx (0.083 %) solution for nebulization #25 vials lorazepam 0.5 mg tablet (Ativan) 0.5 mg PO TID PRN anxiety #10 tabs 06/09/24 Unknown Rx amlodipine 10 mg tablet 10 mg PO DAILY 06/10/24 Unknown History metformin 500 mg tablet,extended 500 mg PO DAILY 06/10/24 Unknown History release 24 hr omeprazole 40 mg capsule,delayed 40 mg PO BID 06/10/24 Unknown History release quetiapine 25 mg tablet 25 mg PO QHS 06/10/24 Unknown History Allergy/AdvReac Type Severity Reaction Status Date / Time amoxicillin (Amoxicillin) Allergy Shortness Verified 03/14/23 09:16 of breath Antihistamines - Alkylamine Allergy Other Verified 03/14/23 09:16 ciprofloxacin (From Cipro) Allergy Shortness Verified 03/14/23 09:16 of breath ciprofloxacin HCl (From Allergy Shortness Verified 03/14/23 09:16 Cipro) of breath codeine Allergy Shortness Verified 03/14/23 09:16 of breath hydrocodone bitartrate (From Allergy Shortness Verified 03/14/23 09:16 Vicodin) of breath Penicillins Allergy Hives Verified 03/14/23 09:16 sulfamethoxazole (From Allergy Shortness Verified 03/14/23 09:16 Bactrim) of breath trimethoprim (From Bactrim) Allergy Shortness Verified 03/14/23 09:16 of breath acetaminophen (From Percocet) AdvReac Vomiting Verified 03/14/23 09:16 beclomethasone dipropionate AdvReac Other Verified 03/14/23 09:16 (From Qvar) oxycodone HCl (From Percocet) AdvReac Vomiting Verified 03/14/23 09:16 tramadol AdvReac Shortness Verified 03/14/23 09:16 of breath Surgical History History of hysterectomy Social History Smoking Status: Current every day smoker tobacco type: cigarettes and smokeless tobacco EXAM Physical Exam Const Vital Signs: 06/10/24 18:01 06/10/24 19:01 06/10/24 20:12 Temperature 96.5 F L Temperature Source Temporal Pulse Rate 120 H 104 H Respiratory Rate 18 16 16 Blood Pressure 146/79 H Blood Pressure Mean 101 Pulse Ox 97 94 Oxygen Delivery Method Room Air Room Air Room Air MDM MDM MDM Narrative Medical decision making narrative: HISTORY OF PRESENT ILLNESS: 63-year-old female presents with her son with concern for the patient's mental health. Per the son patient is talking to people are not there. Per the patient's son she is doing abnormal things. Patient while alert and oriented to person place and time is not particularly communicative and provides limited history. REVIEW OF SYSTEMS: Pertinent positives: Confusion, abnormal behavior Pertinent negatives: SI, HI, auditory or visual hallucinations PHYSICAL EXAM: Nursing triage notes reviewed, Vital signs reviewed Constitutional: please see mdm HENT: MMM Eyes: Pupils equal round and reactive to light, Extraocular muscles intact Neck: No stridor, no JVD, full neck ROM Lungs: Clear to auscultation, No wheezing or rales. No increased work of breathing, no conversational dyspnea, no accessory muscle use, no nasal flaring. No respiratory distress noted Heart: Regular rate and rhythm, No murmurs, No rubs and No gallops, 2+ distal pulses (radial, femoral, posterior tibial) in all extremities Abdomen: Soft, there is no tenderness, rigidity, rebound or guarding, no obvious peritoneal signs, no palpable pulsatile abdominal masses, no auscultated abdominal bruit : No CVAT Extremities: No edema Neuro: No new focal neurological deficits, cranial nerves II through XII intact, 5/5 strength in all present extremities. Intact sensation to light touch in all present extremities, 2+ reflexes bilateral patella tendons. Skin: No rash or lesions noted psych: MEDICAL DECISION MAKING: Chief Complaint: Abnormal behavior External records reviewed: Reviewed ED record from yesterday, imaging from yesterday Factors affecting care: Anxiety, paranoia Social determinants of health: Tobacco abuse History obtained from others: patient's sons Consults: Behavioral social work MDM Narrative: The patient was initially hemodynamically stable, tachycardic, afebrile and nontoxic-appearing. Exam without focal abnormalities. No focal cardiopulmonary abnormalities. No focal deficits. [place] slip signed The patient became agitated initially requiring Geodon and Ativan IM. This impr tom her agitation. Medical clearance labs were obtained ALL IMAGES (IF OBTAINED) HAVE BEEN PERSONALLY REVIEWED AND INTERPRETED BY MYSELF. CBC without leukocytosis, severe anemia, no thrombocytopenia. BMP with mild hypokalemia otherwise unremarkable Urine tox screen pending Given multiple ED visits for similar complaints patient will likely benefit from inpatient Geripsych admission. Patient signed out to overnight physician pending behavior health consultation and likely placement. The patient and/or family, caregivers express understanding. The patient and/or family, caregivers agrees with the plan. Shared decision making: I will have a discussion with the patient and or visitors regarding risk/benefits of further testing or admission. They will be made aware of of the risk/benefits inherent in this decision they will be given the opportunity to voice understanding. Total critical care time today provided was at least 0 minutes. This excludes separately billable procedures. Critical care time (if documented) is secondary to the patient having high probability of clinically significant/life threatening deterioration in the patient's condition which required my urgent intervention. Impression: 1. Abnormal behavior 2. Adult failure to thrive Dispo: Likely admit to [facility] This note was generated with [employer] dictation software. It may contain incorrect words, spelling, and punctuation that were not noted in review of the chart prior to signing. Lab Data Labs: Laboratory Results - last 24 hr 06/10/24 06/10/24 19:26 21:42 WBC 7.6 RBC 5.20 Hgb 14.8 Hct 44.6 MCV 85.8 MCH 28.5 MCHC 33.2 RDW Std Deviation 50.4 H RDW Coeff of Wilber 16.0 H Plt Count 186 MPV 9.3 Immature Gran % (Auto) 0.300 Neut % (Auto) 73.5 H Lymph % (Auto) 18.9 L [place] % (Auto) 6.0 Eos % (Auto) 0.8 Baso % (Auto) 0.5 Absolute Neuts (auto) 5.6 Absolute Lymphs (auto) 1.44 Nucleated RBC % 0 Sodium 142 Potassium 3.2 L Chloride 111 H Carbon Dioxide 23.0 Anion Gap 8 BUN 12 Creatinine 0.62 Estim Creat Clear Calc 74.37 Est GFR (MDRD) Af Amer 126 Est GFR (MDRD) Non-Af 104 BUN/Creatinine Ratio 19.4 Glucose 130 H Calcium 9.0 Ur Drug Screen Comment Ethyl Alcohol < 3.0 Discharge Plan Triage Chief Complaint: Mental Health ED Provider: Hamzah Mart Dx/Rx/DC Orders Prescriptions: No Action albuterol sulfate 2.5 MG/3 ML solution for nebulization 2.5 mg inhalation Q4H PRN PRN (Reason: Wheezing) Trelegy Ellipta 100-62.5-25 mcg blister with device 1 ea INHALATION DAILY Patient Comments: inhale 1 dose by mouth once daily as directed albuterol sulfate 2.5 mg /3 mL (0.083 %) solution for nebulization 2.5 mg inhalation Q4H PRN Qty: 25 0RF Rx Instructions: Use q4 hours and PRN for wheezing lorazepam [Ativan] 0.5 mg tablet 0.5 mg PO TID PRN (Reason: anxiety) Qty: 10 0RF amlodipine 10 mg tablet 10 mg PO DAILY metformin 500 mg tablet extended release 24 hr 500 mg PO DAILY quetiapine 25 mg tablet 25 mg PO QHS omeprazole 40 mg capsule,delayed release(DR/EC) 40 mg PO BID Primary Care Provider: Romaine Nash Referrals: Romaine Nash MD [Primary Care Provider] - Print Language: Welsh
[2024-06-10 19:01] VITALS: RESP 16
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
[2024-06-10] MEDS: LORazepam 2 MG/ML Syringe IM (19:20)
[2024-06-10] MEDS: Ziprasidone IM 20 MG/ML VIAL IM (19:20)
[2024-06-10 19:33] LABS: Absolute Lymphocyte Count 1.44 X10^3/uL (0.83-4.51); Absolute Neutrophil Count 5.6 X10^3/uL (2.0-7.7); Basophil# 0.04 X10^3/uL; Basophil% 0.5 % (0-1); Eosinophil# 0.06 X10^3/uL; Eosinophils% 0.8 % (0-5); Hematocrit 44.6 % (37-47); Hemoglobin 14.8 g/dL (12.0-15.0); Lymphocyte # 1.44 X10^3/ul (0.83-4.51); Lymphocyte % 18.9 % (19-41); Mean Corp Hgb Conc 33.2 g/dL (32-36); Mean Corpuscular Hgb 28.5 pg (27.0-32.0); Mean Corpuscular Volume 85.8 fL (81-99); Mean Platelet Vol. 9.3 fl (6.2-12.0); Monocyte# 0.46 X10^3/uL; NRBC Flagged by Analyzer 0 % (0-5); Neutrophil % 73.5 % (47-70); POSITIVE COUNT NO; POSITIVE DIFFERENTIAL NO; POSITIVE MORPHOLOGY NO; Platelet Count 186 K/mm3 (150-450); RBC Distribution Width SD 50.4 fl (35.1-43.9); White Blood Count 7.6 K/mm3 (4.4-11.0)
[2024-06-10 19:49] LABS: Alcohol, Blood (Medical)-Serum < 3.0 mg/dL
[2024-06-10 20:05] LABS: Anion Gap 8 (5-15); BUN 12 mg/dL (7-18); BUN/Creat Ratio 19.4 RATIO (10-20); Chloride 111 mmol/L (98-107); Creatinine, Serum 0.62 mg/dL (0.55-1.02); EST Glomerular Filtration Rate 104 mL/min (>60); Est Glom Filt Rate - Afr Amer 126 mL/min (>60); Estimated Creatinine Clearance 74.37 ml/min; Glucose 130 mg/dL (74-106); Potassium 3.2 mmol/L (3.5-5.1); Sodium Level 142 mmol/L (136-145)
[2024-06-10 20:12] VITALS: PULSE 104; RESP 16; O2SAT 94
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
--- NOTE | 2024-06-10 21:50 | CM.ED ---
Social Work: Probate Paralegal [facility] and spoke with Ivonne to give her a heads up that once we have everything we need to be able to fax over a complete referral packet, we will and we will need assistance in securing placement for patient. Belinda
[2024-06-10 21:53] VITALS: RESP 16
[2024-06-10 22:07] LABS: Amphetamine Urine VISTA NEGATIVE (<1000 ng/mL); Barbiturate Urine VISTA NEGATIVE (< 200 ng/mL); Benzodiazepine Urine VISTA NEGATIVE (< 200 ng/mL); Cocaine Urine VISTA NEGATIVE (< 300 ng/mL); Ecstacy Urine VISTA NEGATIVE (< 500 ng/mL); Methadone Urine VISTA NEGATIVE (< 300 ng/mL); PCP Urine VISTA NEGATIVE (< 25 ng/mL); THC Urine VISTA NEGATIVE (< 50 ng/mL); Vista UDS pH Range 5
--- NOTE | 2024-06-10 22:23 | ED.RN ---
[facility] CALLED, CHART FAXED
--- NOTE | 2024-06-11 00:55 | ED.RN ---
PT ACCEPTED [facility] [id number] [phone]
--- NOTE | 2024-06-11 04:10 | ED.RN ---
This RN attempted to call report and the staff stated Isnt she coming at 9? this RN stated shes leaving here at 8 am and the staff stated cant you call back when dayshift gets here? RN said yep ill pass it along to dayshift.
[2024-06-11] MEDS: LORazepam 2 MG/ML Syringe IM (05:48)
--- NOTE | 2024-06-11 05:49 | ED.RN ---
Pt repeatedly coming out of room, unable to redirect. When this nurse asked pt to go back to room, pt yelled at this nurse. Order obtained for PRN agitation medication and administered with HRO and security at bedside.
[2024-06-11 05:53] VITALS: BP 153/97; PULSE 101; RESP 16; O2SAT 95
[2024-06-11 08:43] LABS: Bedside Glucose 129 mg/dL (74-106)
[2024-06-11 10:28] VITALS: BP 138/76; PULSE 89; RESP 18; TEMP 36.6; O2SAT 99
== END 2024-06-11 10:30 ==
PROVIDERS: Emergency Provider Emergency Medicine; PCP Family Medicine; Visit Provider Emergency Medicine
DX: F41.9 Anxiety disorder, unspecified (principal); R62.7 Adult failure to thrive; I10 Essential (primary) hypertension; F17.210 Nicotine dependence, cigarettes, uncomplicated; F17.220 Nicotine dependence, chewing tobacco, uncomplicated; Z68.1 Body mass index [BMI] 19.9 or less, adult; Z79.899 Other long term (current) drug therapy
CPT/HCPCS: 80048; 80307; 82077; 82962; 85025; 96372; 99283; J3486

== ENCOUNTER 2024-06-23 03:34 | Emergency (ER) | payer MEDICARE, MEDICAID, SELFPAY ==
[2024-06-23 03:35] VITALS: BP 161/97; PULSE 103; RESP 20; TEMP 36.6; O2SAT 96; BMI 20.2
--- NOTE | 2024-06-23 03:38 | EX.ED.VIS.PS ---
HPI HPI - Psych History of Present Illness Chief Complaint: Mental Health Detail of Chief Complaint: Nonverbal, position, cough and shortness of breath Informant: EMS Onset/Context/Timing Onset: - (Per paramedics she was released from psychiatric facility yesterday.) Context: Unknown will need to speak with son once he arrives. Associated Symptoms Associated Symptoms - Psych: Positive for Change in Eating and Paranoia (Per EMS) Specific plan (suicidal thought): Per EMS no Narrative Narrative: Patient is a 63-year-old woman. She was seen June 10 and admitted to a psychiatric facility for abnormal behavior and failure to thrive in an adult patient. She has history of chronic airway obstruction, depression, anxiety, GERD, DVT and tobacco use. Patient arrived by ambulance. She will look around the room. She will not speak. She nodded no to son coming to the ER. Patient was transferred to [facility]. Apparently she was overmedicated per son's and had a respiratory arrest and was transferred to [facility]. She is presently on Ativan. Since she has been home she has been quiet and has not spoken. Prior similar symptoms: Yes Recent Illness/Hospitalization: Yes [facility] Medical History Asthma GERD (gastroesophageal reflux disease) Anxiety HTN (hypertension) Emphysema lung Home Medications ?Medication ?Instructions ?Recorded ?Last Taken ?Type albuterol sulfate 2.5 mg/3 mL 2.5 mg inhalation Q4H PRN PRN 04/04/17 Unknown History (0.083 %) solution for nebulization Wheezing albuterol sulfate 2.5 mg/3 mL 2.5 mg (3 mL) inhalation Q4H PRN 03/14/23 Unknown Rx (0.083 %) solution for nebulization #25 vials amlodipine 10 mg tablet 10 mg PO DAILY 06/10/24 Unknown History metformin 500 mg tablet,extended 500 mg PO DAILY PRN high bs 06/10/24 Unknown History release 24 hr omeprazole 40 mg capsule,delayed 40 mg PO BID 06/10/24 Unknown History release docusate sodium 100 mg capsule 100 mg PO TID PRN PRN constipation 06/23/24 Unknown History lorazepam 0.5 mg tablet (Ativan) 0.5 mg PO BID PRN anxiety 06/23/24 Unknown History multivitamin (Daily Multi-Vitamin 1 tab PO DAILY 06/23/24 Unknown History tablet) Allergy/AdvReac Type Severity Reaction Status Date / Time amoxicillin (Amoxicillin) Allergy Shortness Verified 06/23/24 03:46 of breath Antihistamines - Alkylamine Allergy Other Verified 06/23/24 03:46 ciprofloxacin (From Cipro) Allergy Shortness Verified 06/23/24 03:46 of breath ciprofloxacin HCl (From Allergy Shortness Verified 06/23/24 03:46 Cipro) of breath codeine Allergy Shortness Verified 06/23/24 03:46 of breath hydrocodone bitartrate (From Allergy Shortness Verified 06/23/24 03:46 Vicodin) of breath Penicillins Allergy Hives Verified 06/23/24 03:46 sulfamethoxazole (From Allergy Shortness Verified 06/23/24 03:46 Bactrim) of breath trimethoprim (From Bactrim) Allergy Shortness Verified 06/23/24 03:46 of breath acetaminophen (From Percocet) AdvReac Vomiting Verified 06/23/24 03:46 beclomethasone dipropionate AdvReac Other Verified 06/23/24 03:46 (From Qvar) oxycodone HCl (From Percocet) AdvReac Vomiting Verified 06/23/24 03:46 tramadol AdvReac Shortness Verified 06/23/24 03:46 of breath Surgical History History of hysterectomy Social History Smoking Status: Current every day smoker tobacco type: cigarettes and smokeless tobacco ROS ROS ED Review of Systems ROS Unobtainable: due to mental condition and due to mental status Respiratory/Chest Respiratory/Chest: Reports cough and dyspnea EXAM Physical Exam Const Vital Signs: 06/23/24 03:35 Temperature 97.9 F Temperature Source Temporal Pulse Rate 103 H Respiratory Rate 20 H Blood Pressure 161/97 H Blood Pressure Mean 118 Pulse Ox 96 Blood pressure is elevated. She is tachycardic. She is not febrile nor is she hypoxic. Positive well nourished Constitutional Narrative: Patient is position on her left side. She will look at me when I am speaking. She will not answer any questions. She nodded no as noted in the HPI narrative when she overheard if her sons were coming to the emergency department. General Appearance ED: NAD; Negative for pallor HEENT Reports moist mucous membranes normocephalic Eyes PERRL and EOMs intact bilaterally General Eye ED: Negative for pale conjunctiva or scleral icterus Neck no lymphadenopathy, supple and no JVD Resp normal respiratory effort and No clear to auscultation bilaterally Auscultation: rales right base and left base Cardio S1 normal heart sound, S2 normal heart sound and no murmurs Rate: regular rate Rhythm: regular rhythm GI non-tender, non-distended and no masses Auscultation: hypoactive bowel sounds Palpation: soft Extremity normal to inspection Extremity Narrative: There is no clubbing or cyanosis. Capillary refill is normal. Neuro Neuro Narrative: Patient lies on the cot on her left side in a position. There is no verbal response and she does not follow simple commands. Psych Psych Narrative: Difficult to assess since patient remains in position and will not answer any questions. Appearance: grossly normal Attitude: calm and uncooperative Activity / Motor Behavior: Negative for appropriate eye contact, psychomotor agitation, fidgetting or restless Speech: mute Mood & Affect: flat affect Thought Process: other Unable to determine thought process Thought Content: other Unable to determine thought content Attention / Concentration: other I believe she understands what I am asking. Insight: other Unable to determine Judgement: other Unable to determine Skin General Skin Exam: Negative for jaundice or pallor Lesions: no lesions Rashes: No no rashes Trauma: Negative for abrasion MDM MDM MDM Narrative Medical decision making narrative: Because she has a moist cough and rales were noted and her complaint was shortness of breath with some chest discomfort will obtain chest x-ray to assess for pneumonia. Appropriate blood work was ordered to assess for metabolic infectious causes of her altered mental status i.e. elevated white count, electrolyte abnormalities specifically hyponatremia or hyper natremia. Dr. Mart's report for visit dated June 10, 2024 was reviewed.Patient was seen on June 09 2023 for anxiety and paranoia by Dr. Ruelas. Patient was seen March 14, 2023 for cough. I was informed by her nurse that the sons are here. They requested that she not be pink slipped. Since patient not suicidal homicidal there is no indication to pink slip or at this time. History & Record Review Additional record(s) reviewed:: Prior ED visit and Prior labs Lab Data Attestation: I reviewed the patient's lab results. Lab results narrative: CBC is unremarkable. Comprehensive panel is unremarkable. Blood sugar is 144 with a normal CO2 anion gap. There is no evidence of endorgan dysfunction. Labs: Laboratory Results - last 24 hr 06/23/24 04:06 WBC 6.3 RBC 4.87 Hgb 13.9 Hct 42.3 MCV 86.9 MCH 28.5 MCHC 32.9 RDW Std Deviation 51.3 H RDW Coeff of Wilber 16.2 H Plt Count 286 MPV 8.7 Immature Gran % (Auto) 0.300 Neut % (Auto) 71.6 H Lymph % (Auto) 16.3 L [place] % (Auto) 10.0 Eos % (Auto) 0.9 Baso % (Auto) 0.9 Absolute Neuts (auto) 4.5 Absolute Lymphs (auto) 1.03 Nucleated RBC % 0 Sodium 137 Potassium 4.2 Chloride 107 Carbon Dioxide 26.0 Anion Gap 3 L BUN 9 Creatinine 0.69 Estim Creat Clear Calc 69.88 Est GFR (MDRD) Af Amer 111 Est GFR (MDRD) Non-Af 92 BUN/Creatinine Ratio 13.1 Glucose 144 H Calcium 9.3 Total Bilirubin 0.30 AST 12 L ALT 24 Alkaline Phosphatase 110 Total Protein 6.8 Albumin 3.2 Globulin 3.6 Albumin/Globulin Ratio 0.9 Radiography Chest X-Ray - ED: 2 View, Read by ED Physician (Independent reviewed interpreted by me at 0422. The chest x-ray unchanged from March 14, 2023.), Normal, Lungs, Mediastinum, Bony Structures and No Acute Disease Rhythm Strip Rhythm Strip: Sinus Rhythm Rate: 99 Ectopy: None Discharge Plan Triage Chief Complaint: Mental Health ED Provider: Shade Tai Dx/Rx/DC Orders Clinical Impression: Bronchitis, Chronic airway obstruction, IBS (irritable bowel syndrome), Catatonic state Prescriptions: No Action albuterol sulfate 2.5 MG/3 ML solution for nebulization 2.5 mg inhalation Q4H PRN PRN (Reason: Wheezing) albuterol sulfate 2.5 mg /3 mL (0.083 %) solution for nebulization 2.5 mg inhalation Q4H PRN Qty: 25 0RF Rx Instructions: Use q4 hours and PRN for wheezing docusate sodium 100 mg capsule 100 mg PO TID PRN PRN (Reason: constipation) multivitamin [Daily Multi-Vitamin] Tablet 1 tab PO DAILY lorazepam [Ativan] 0.5 mg tablet 0.5 mg PO BID PRN (Reason: anxiety) amlodipine 10 mg tablet 10 mg PO DAILY metformin 500 mg tablet extended release 24 hr 500 mg PO DAILY PRN (Reason: high bs) omeprazole 40 mg capsule,delayed release(DR/EC) 40 mg PO BID Primary Care Provider: Romaine Nash Referrals: Romaine Nash MD [Primary Care Provider] - Print Language: Belgian
--- NOTE | 2024-06-23 04:08 | ED.RN ---
pt's sons verbalized that they do not want their mother pink slipped and they will take her home because they just want her shortness of breath treated.Dr Tai made aware. Order changed.
--- NOTE | 2024-06-23 04:13 | RAD_ITS ---
INDICATION: Cough, tachypnea EXAMINATION/TECHNIQUE: X-RAY - XR Chest 2 Views COMPARISON: March 14, 2023 FINDINGS: LINES/DEVICES: None. LUNGS: The lungs are hyperinflated. There are bibasilar streaky opacities. No consolidation, edema or effusion. No pneumothorax. MEDIASTINUM AND CARDIOVASCULAR STRUCTURES: Cardiac silhouette not enlarged. Central airways and mediastinal contour are unremarkable. BONES AND SOFT TISSUES: Unremarkable. RAD/Chest PA and Lateral IMPRESSION: Bibasilar streaky opacities suggestive of atelectasis, cannot exclude associated pneumonia. Hyperinflated lungs. Electronically Signed: Herlinda Chaves MD at 8:29 EST ,
[2024-06-23 04:15] LABS: Absolute Lymphocyte Count 1.03 X10^3/uL (0.83-4.51); Absolute Neutrophil Count 4.5 X10^3/uL (2.0-7.7); Basophil# 0.06 X10^3/uL; Basophil% 0.9 % (0-1); Eosinophil# 0.06 X10^3/uL; Eosinophils% 0.9 % (0-5); Hematocrit 42.3 % (37-47); Hemoglobin 13.9 g/dL (12.0-15.0); Lymphocyte # 1.03 X10^3/ul (0.83-4.51); Lymphocyte % 16.3 % (19-41); Mean Corp Hgb Conc 32.9 g/dL (32-36); Mean Corpuscular Hgb 28.5 pg (27.0-32.0); Mean Corpuscular Volume 86.9 fL (81-99); Mean Platelet Vol. 8.7 fl (6.2-12.0); Monocyte# 0.63 X10^3/uL; NRBC Flagged by Analyzer 0 % (0-5); Neutrophil # 4.52 X10^3/uL (2.7-7.7); Neutrophil % 71.6 % (47-70); Platelet Count 286 K/mm3 (150-450); RBC Distribution Width CV 16.2 % (11.6-14.6); RBC Distribution Width SD 51.3 fl (35.1-43.9); Red Blood Count 4.87 M/mm3 (4.2-5.4); White Blood Count 6.3 K/mm3 (4.4-11.0)
[2024-06-23 04:33] LABS: ALB/GLOB Ratio 0.9 RATIO (0.9-2.4); AST(SGOT) 12 U/L (15-37); Alanine Aminotransfer ALT/SGPT 24 U/L (13-56); Albumin, Serum 3.2 g/dL (3.2-5.0); Alkaline Phosphatase 110 U/L (45-117); Anion Gap 3 (5-15); BUN 9 mg/dL (7-18); BUN/Creat Ratio 13.1 RATIO (10-20); Calcium,Total 9.3 mg/dL (8.5-10.1); Chloride 107 mmol/L (98-107); Creatinine, Serum 0.69 mg/dL (0.55-1.02); EST Glomerular Filtration Rate 92 mL/min (>60); Est Glom Filt Rate - Afr Amer 111 mL/min (>60); Estimated Creatinine Clearance 69.88 ml/min; Globulin 3.6 g/dL (2.2-4.2); Glucose 144 mg/dL (74-106); Potassium 4.2 mmol/L (3.5-5.1); Protein, Total 6.8 g/dL (6.4-8.2); Sodium Level 137 mmol/L (136-145)
[2024-06-23] MEDS: LORazepam 0.5 MG Tablet PO (04:54)
== END 2024-06-23 04:55 | disposition home or self-care (01) ==
PROVIDERS: Emergency Provider Emergency Medicine; PCP Family Medicine; Visit Provider Emergency Medicine
DX: J44.0 Chronic obstructive pulmonary disease with (acute) lower respiratory infection (principal); J43.9 Emphysema, unspecified; J40 Bronchitis, not specified as acute or chronic; F41.9 Anxiety disorder, unspecified; I10 Essential (primary) hypertension; K58.9 Irritable bowel syndrome, unspecified; F17.210 Nicotine dependence, cigarettes, uncomplicated; F17.220 Nicotine dependence, chewing tobacco, uncomplicated; Z79.899 Other long term (current) drug therapy
CPT/HCPCS: 36415; 71046; 80053; 85025; 99283